=== PATIENT | male | born 1980 | race Caucasian/White ===

== ENCOUNTER 2017-03-17 22:41 | Emergency (ER) | payer OTHER ==
[~2017-03-17] VITALS: Ht 160 cm; Wt 87.2 kg
[~2017-03-17 22:41] MED LIST: ALBUTEROL0.09 MG/A1 IH; BACTRIM DS 8001 TAB PO; BENTYL 10MG10 MG/CAP PO; CELEXA 20MG20 MG/TAB PO; CEPHALEXIN500 M1 PO; CHOLESTEROL MED PO; DOXYCYCLINE 10100 MG PO; FLEXERIL10 MG PO; GENTAMICIN EYE D5 ML OP; GLUCOPHAGE500 MG/TAB PO; LEVEMIR FLEX100 U/ML SQ; LEVEMIR100 U/ML SQ; LOMOTIL 0.025 M1 TAB PO; LORTAB 5/500 501 TAB PO; MECLIZINE25 MG PO; NO HOME MEDICATIONS; NORCO 325 MG-51 TAB PO; NORCO 325 MG-7.1 TAB PO; PEPCID 20MG TAB20 MG PO; PRILOSEC 20MG20 MG PO; PROMETHAZINE12.5 M5 PO; PROZAC 20MG20 MG PO; SEPTRA DS 8001 TAB PO; VENTOLIN0.09 MG IH; ZOFRAN4 MG PO
[2017-03-17 23:01] VITALS: TEMP 98.5
[2017-03-18] MEDS ORDERED: HIBICLENS4% TP (00:41)
[2017-03-18] MEDS ORDERED: DOXYCYCLINE 10100 MG PO (00:41)
[2017-03-18 00:53] VITALS: BP 118/68; PULSE 61
== END 2017-03-18 00:53 | disposition home or self-care (01) ==
LOC: COL.ER 22:41
DX: L02.01 Cutaneous abscess of face (principal); Z86.14 Personal history of Methicillin resistant Staphylococcus aureus infection

== ENCOUNTER 2017-04-01 07:12 | Emergency (ER) | payer BC, OTHER ==
[~2017-04-01] VITALS: Ht 160 cm; Wt 89.2 kg
[~2017-04-01 07:12] MED LIST changes: +HIBICLENS4% TP
[2017-04-01 07:14] VITALS: TEMP 97.4
[2017-04-01 07:57] LABS: BASO % 0.4 % (0.0-2.0); EOS # 0.1 (0.0-0.7); EOS % 1.4 % (0-4.0); GRAN # 6.5 (1.4-6.5); GRAN % 64.5 % (42.2-75.2); HEMOGLOBIN 15.8 g/dl (13.5-18.0); LYMPH # 2.7 (1.2-3.4); LYMPH % 26.9 % (20.0-51.0); MEAN CELL VOLUME 84 fl (80.0-100.0); MEAN CORPUSCULAR HEMOGLOBIN 29 pg (27.0-31.0); MEAN CORPUSCULAR HGB CONC 35 g/dl (33.0-37.0); MONO # 0.6 (0.1-0.6); MONO % 6.2 % (1.7-9.3); PLATELET COUNT 240 K/mm3 (130-400); RED BLOOD COUNT 5.37 M/mm3 (4.20-5.60); REDCELL DISTRIBUTION WIDTH-CV 12.5 % (11.5-14.5)
[2017-04-01 08:07] LABS: ADJUSTED CALCIUM 8.7 mg/dL (8.4-10.2); ALBUMIN 3.7 gm/dL (3.5-5.0); BILIRUBIN,TOTAL 1.2 mg/dL (0.0-1.0); CALCIUM 8.5 mg/dL (8.4-10.2); CREATININE, serum 0.63 mg/dL (0.66-1.25); POTASSIUM 3.7 mmol/L (3.4-5.0); TOTAL PROTEIN 6.7 gm/dL (6.4-8.2)
[2017-04-01] MEDS ORDERED: NORCO 325 MG-51 TAB PO (08:25)
[2017-04-01 09:18] VITALS: BP 114/74; PULSE 70
== END 2017-04-01 09:18 | disposition home or self-care (01) ==
LOC: COL.ER 07:12
PROVIDERS: Emergency Medicine
DX: R55 Syncope and collapse (principal); R10.11 Right upper quadrant pain; E11.9 Type 2 diabetes mellitus without complications; J45.909 Unspecified asthma, uncomplicated; F17.210 Nicotine dependence, cigarettes, uncomplicated

== ENCOUNTER 2017-04-03 17:30 | Emergency (ER) | payer BC ==
[~2017-04-03] VITALS: Ht 160 cm; Wt 86.4 kg
[2017-04-03 17:33] VITALS: TEMP 97.5
[2017-04-03 18:17] LABS: BASO # 0.1 (0.0-0.2); BASO % 0.5 % (0.0-2.0); EOS # 0.2 (0.0-0.7); EOS % 2.2 % (0-4.0); GRAN # 5.3 (1.4-6.5); GRAN % 52.2 % (42.2-75.2); HEMATOCRIT 43.2 % (42.0-52.0); HEMOGLOBIN 15.5 g/dl (13.5-18.0); LYMPH # 3.9 (1.2-3.4); LYMPH % 38.6 % (20.0-51.0); MEAN CELL VOLUME 84 fl (80.0-100.0); MEAN CORPUSCULAR HEMOGLOBIN 30 pg (27.0-31.0); MEAN CORPUSCULAR HGB CONC 36 g/dl (33.0-37.0); MONO # 0.6 (0.1-0.6); PLATELET COUNT 256 K/mm3 (130-400); RED BLOOD COUNT 5.13 M/mm3 (4.20-5.60); REDCELL DISTRIBUTION WIDTH-CV 12.1 % (11.5-14.5); WHITE BLOOD COUNT 10.2 K/mm3 (4.8-10.8)
[2017-04-03 18:22] LABS: PROTHROMBIN TIME 10.9 SECONDS (9.7-12.8)
[2017-04-03 18:25] LABS: PARTIAL THROMBOPLASTIN TIME 31.8 SECONDS (26.0-37.0)
[2017-04-03 18:31] LABS: ALANINE AMINOTRANSFERASE 30 U/L (21-72); ALBUMIN 3.7 gm/dL (3.5-5.0); ALKALINE PHOSPHATASE 82 U/L (50-136); ANION GAP 12 mmol/L (7-16); BILIRUBIN,TOTAL 0.6 mg/dL (0.0-1.0); BLOOD UREA NITROGEN 11 mg/dL (9-20); CALCIUM 8.8 mg/dL (8.4-10.2); CARBON DIOXIDE 21 mmol/L (22-30); CHLORIDE 104 mmol/L (98-107); CREATININE, serum 0.62 mg/dL (0.66-1.25); GLUCOSE 230 mg/dL (74-106); SODIUM 137 mmol/L (137-145); TOTAL PROTEIN 6.6 gm/dL (6.4-8.2)
[2017-04-03 18:47] LABS: TROPONIN-I < 0.012 ng/mL (0.000-0.034)
[2017-04-03] MEDS ORDERED: NORCO 325 MG-51 TAB PO (20:49)
[2017-04-03 21:02] VITALS: BP 118/75; PULSE 63
== END 2017-04-03 21:02 | disposition home or self-care (01) ==
LOC: COL.ER 17:30
PROVIDERS: Family Medicine
DX: R07.9 Chest pain, unspecified (principal); R07.89 Other chest pain; E11.9 Type 2 diabetes mellitus without complications; F17.210 Nicotine dependence, cigarettes, uncomplicated; Z79.4 Long term (current) use of insulin
CPT/HCPCS: J1885; Q9967

== ENCOUNTER 2017-04-18 18:38 | Emergency (ER) | payer BC ==
[~2017-04-18] VITALS: Ht 160 cm; Wt 88.2 kg
[2017-04-18 18:39] VITALS: TEMP 98.4
[2017-04-18 19:10] LABS: BASO # 0.1 (0.0-0.2); BASO % 0.4 % (0.0-2.0); EOS # 0.2 (0.0-0.7); EOS % 1.7 % (0-4.0); GRAN # 6.5 (1.4-6.5); GRAN % 56.3 % (42.2-75.2); HEMATOCRIT 46.6 % (42.0-52.0); HEMOGLOBIN 16.4 g/dl (13.5-18.0); LYMPH % 34.7 % (20.0-51.0); MEAN CELL VOLUME 84 fl (80.0-100.0); MEAN CORPUSCULAR HEMOGLOBIN 30 pg (27.0-31.0); MEAN CORPUSCULAR HGB CONC 35 g/dl (33.0-37.0); MEAN PLATELET VOLUME 10.2 fl (7.4-10.4); MONO # 0.7 (0.1-0.6); MONO % 6.4 % (1.7-9.3); PLATELET COUNT 274 K/mm3 (130-400); RED BLOOD COUNT 5.54 M/mm3 (4.20-5.60); REDCELL DISTRIBUTION WIDTH-CV 12.4 % (11.5-14.5); WHITE BLOOD COUNT 11.5 K/mm3 (4.8-10.8)
[2017-04-18 19:12] LABS: PROTHROMBIN TIME 10.8 SECONDS (9.7-12.8)
[2017-04-18 19:15] LABS: PARTIAL THROMBOPLASTIN TIME 32.3 SECONDS (26.0-37.0)
[2017-04-18 19:33] LABS: ADJUSTED CALCIUM 8.9 mg/dL (8.4-10.2); ALANINE AMINOTRANSFERASE 44 U/L (21-72); ALBUMIN 4.1 gm/dL (3.5-5.0); ALKALINE PHOSPHATASE 79 U/L (50-136); ANION GAP 12 mmol/L (7-16); BILIRUBIN,TOTAL 0.7 mg/dL (0.0-1.0); BLOOD UREA NITROGEN 14 mg/dL (9-20); CARBON DIOXIDE 25 mmol/L (22-30); CHLORIDE 100 mmol/L (98-107); CREATININE, serum 0.65 mg/dL (0.66-1.25); GLUCOSE 257 mg/dL (74-106); POTASSIUM 4.2 mmol/L (3.4-5.0); SODIUM 137 mmol/L (137-145); TOTAL PROTEIN 7.1 gm/dL (6.4-8.2)
[2017-04-18 19:45] LABS: TROPONIN-I < 0.012 ng/mL (0.000-0.034)
[2017-04-18 21:54] VITALS: BP 123/78; PULSE 93
== END 2017-04-18 21:37 | disposition home or self-care (01) ==
LOC: COL.ER 18:38
PROVIDERS: Family Medicine
DX: R07.89 Other chest pain (principal); I10 Essential (primary) hypertension; E11.9 Type 2 diabetes mellitus without complications; F17.210 Nicotine dependence, cigarettes, uncomplicated; Z79.4 Long term (current) use of insulin; Z79.84 Long term (current) use of oral hypoglycemic drugs

== ENCOUNTER 2017-05-07 12:29 | Day surgery (SDC) | payer BC ==
[2017-05-07] VITALS (10 sets, daily range): BP systolic 103–130; BP diastolic 41–88; PULSE 72–97; TEMP 97.4–98.4
[~2017-05-07] VITALS: Ht 160 cm; Wt 88.6 kg
[2017-05-07 13:08] LABS: HEMATOCRIT 46.3 % (42.0-52.0); HEMOGLOBIN 16.3 g/dl (13.5-18.0); MEAN CELL VOLUME 84 fl (80.0-100.0); MEAN CORPUSCULAR HEMOGLOBIN 30 pg (27.0-31.0); MEAN CORPUSCULAR HGB CONC 35 g/dl (33.0-37.0); MEAN PLATELET VOLUME 9.9 fl (7.4-10.4); PLATELET COUNT 267 K/mm3 (130-400); REDCELL DISTRIBUTION WIDTH-CV 12.7 % (11.5-14.5); WHITE BLOOD COUNT 10.6 K/mm3 (4.8-10.8)
[2017-05-07] MEDS ORDERED: ASPIRIN 81M81 MG/TA2 PO (13:15)
[2017-05-07 13:16] LABS: INR 1.1 (0.8-3.0); PROTHROMBIN TIME 11.8 SECONDS (9.7-12.8)
[2017-05-07 13:42] LABS: CALCIUM 8.6 mg/dL (8.4-10.2); CREATININE, serum 0.68 mg/dL (0.66-1.25); POTASSIUM 3.8 mmol/L (3.4-5.0)
[2017-05-08 02:39] VITALS: BP 119/80; PULSE 87; TEMP 97.6
[2017-05-08 08:35] VITALS: BP 131/76; PULSE 85; TEMP 97.2
[2017-05-08] MEDS ORDERED: TYLENOL 325MG325 MG PO (11:53)
[2017-05-08] MEDS ORDERED: CEPHALEXIN500 M1 PO (11:54)
== END 2017-05-08 13:18 | disposition home or self-care (01) ==
LOC: COL.CAR 12:29 → MEDICAL 16:30 → COL.CAR 05-08 13:18
PROVIDERS: Internal Medicine Interventional Cardiology
DX: R00.1 Bradycardia, unspecified (principal); I45.5 Other specified heart block; I20.9 Angina pectoris, unspecified; Z83.3 Family history of diabetes mellitus; Z82.49 Family history of ischemic heart disease and other diseases of the circulatory system
CPT/HCPCS: OP; C1785; C1894; C1898; J0690; J1815; J1940; J2250; J3010; J7030

== ENCOUNTER 2017-06-03 12:31 | Emergency (ER) | payer OTHER ==
[~2017-06-03] VITALS: Ht 160 cm; Wt 88.6 kg
[~2017-06-03 12:31] MED LIST changes: +ASPIRIN 81M81 MG/TA2 PO; +TYLENOL 325MG325 MG PO
[2017-06-03 12:35] VITALS: BP 133/88; PULSE 84; TEMP 98.4
[2017-06-03] MEDS ORDERED: LIPITOR 10MG10 MG PO (12:39)
[2017-06-03] MEDS ORDERED: PEN-VEE K500 MG PO (13:22)
[2017-06-03] MEDS ORDERED: NORCO 325 MG-51 TAB PO (13:22)
== END 2017-06-03 13:52 | disposition home or self-care (01) ==
LOC: COL.ER 12:31
DX: K02.9 Dental caries, unspecified (principal); R68.84 Jaw pain; E11.9 Type 2 diabetes mellitus without complications; F17.210 Nicotine dependence, cigarettes, uncomplicated; Z79.4 Long term (current) use of insulin; Z79.84 Long term (current) use of oral hypoglycemic drugs; Z79.82 Long term (current) use of aspirin; Z95.0 Presence of cardiac pacemaker

== ENCOUNTER 2017-07-12 08:23 | Emergency (ER) | payer OTHER ==
[~2017-07-12] VITALS: Ht 160 cm; Wt 88.6 kg
[~2017-07-12 08:23] MED LIST changes: +LIPITOR 10MG10 MG PO; +PEN-VEE K500 MG PO
[2017-07-12 08:25] VITALS: TEMP 97.4
[2017-07-12 09:06] VITALS: BP 121/84; PULSE 66
== END 2017-07-12 09:07 | disposition home or self-care (01) ==
LOC: COL.ER 08:23
DX: J02.0 Streptococcal pharyngitis (principal); E11.9 Type 2 diabetes mellitus without complications; Z79.84 Long term (current) use of oral hypoglycemic drugs; Z79.4 Long term (current) use of insulin; Z79.82 Long term (current) use of aspirin
CPT/HCPCS: J0561

== ENCOUNTER 2017-08-28 05:40 | Emergency (ER) | payer OTHER ==
[~2017-08-28] VITALS: Ht 160 cm; Wt 88.6 kg
[2017-08-28 05:43] VITALS: TEMP 98.6
[2017-08-28 06:12] LABS: BASO # 0.1 (0.0-0.2); BASO % 0.4 % (0.0-2.0); EOS # 0.2 (0.0-0.7); EOS % 1.4 % (0-4.0); GRAN # 7.5 (1.4-6.5); GRAN % 61.2 % (42.2-75.2); HEMATOCRIT 48.9 % (42.0-52.0); HEMOGLOBIN 16.7 g/dl (13.5-18.0); LYMPH # 3.5 (1.2-3.4); LYMPH % 28.7 % (20.0-51.0); MEAN CELL VOLUME 86 fl (80.0-100.0); MEAN CORPUSCULAR HEMOGLOBIN 29 pg (27.0-31.0); MEAN CORPUSCULAR HGB CONC 34 g/dl (33.0-37.0); MONO % 7.9 % (1.7-9.3); PLATELET COUNT 254 K/mm3 (130-400); RED BLOOD COUNT 5.69 M/mm3 (4.20-5.60); WHITE BLOOD COUNT 12.2 K/mm3 (4.8-10.8)
[2017-08-28 06:24] LABS: PROTHROMBIN TIME 11.1 SECONDS (9.7-12.8)
[2017-08-28 06:27] LABS: PARTIAL THROMBOPLASTIN TIME 33.3 SECONDS (26.0-37.0)
[2017-08-28 06:47] LABS: ADJUSTED CALCIUM 8.9 mg/dL (8.4-10.2); ALANINE AMINOTRANSFERASE 41 U/L (21-72); ALKALINE PHOSPHATASE 90 U/L (50-136); ANION GAP 11 mmol/L (7-16); BILIRUBIN,TOTAL 1.4 mg/dL (0.0-1.0); BLOOD UREA NITROGEN 11 mg/dL (9-20); CALCIUM 8.9 mg/dL (8.4-10.2); CARBON DIOXIDE 24 mmol/L (22-30); CHLORIDE 105 mmol/L (98-107); CREATININE, serum 0.66 mg/dL (0.66-1.25); GLUCOSE 144 mg/dL (74-106); POTASSIUM 3.8 mmol/L (3.4-5.0); SODIUM 140 mmol/L (137-145); TOTAL PROTEIN 7.2 gm/dL (6.4-8.2)
[2017-08-28 06:55] LABS: B-TYPE NATRIURETIC PEPTIDE 24 pg/mL (0-125)
[2017-08-28 07:32] LABS: TROPONIN-I < 0.012 ng/mL (0.000-0.034)
[2017-08-28 11:18] VITALS: BP 125/82; PULSE 64
== END 2017-08-28 11:18 | disposition home or self-care (01) ==
LOC: COL.ER 05:40
PROVIDERS: Emergency Medicine
DX: R07.9 Chest pain, unspecified (principal); R00.0 Tachycardia, unspecified; R00.2 Palpitations; Z45.018 Encounter for adjustment and management of other part of cardiac pacemaker; E11.9 Type 2 diabetes mellitus without complications; I49.5 Sick sinus syndrome; F17.200 Nicotine dependence, unspecified, uncomplicated; Z79.4 Long term (current) use of insulin
CPT/HCPCS: J2270

== ENCOUNTER 2017-09-15 22:36 | Emergency (ER) | payer OTHER ==
[~2017-09-15] VITALS: Ht 160 cm; Wt 88.6 kg
[2017-09-15 22:40] VITALS: BP 155/93; PULSE 63; TEMP 97.8
[2017-09-15] MEDS ORDERED: PEN-VEE K500 MG PO (23:48)
== END 2017-09-15 23:53 | disposition home or self-care (01) ==
LOC: COL.ER 22:36
DX: R07.9 Chest pain, unspecified (principal); K08.89 Other specified disorders of teeth and supporting structures; E11.9 Type 2 diabetes mellitus without complications; F17.210 Nicotine dependence, cigarettes, uncomplicated; Z79.84 Long term (current) use of oral hypoglycemic drugs
CPT/HCPCS: J1885; J2360

== ENCOUNTER 2017-10-07 17:23 | Emergency (ER) | payer OTHER ==
[~2017-10-07] VITALS: Ht 160 cm; Wt 87.7 kg
[~2017-10-07 17:23] MED LIST changes: +CLEOCIN HC150 MG/CAP PO
[2017-10-07 17:34] VITALS: TEMP 98.2
[2017-10-07 18:52] VITALS: BP 111/93; PULSE 85
== END 2017-10-07 18:45 | disposition home or self-care (01) ==
LOC: COL.ER 17:23
DX: J02.9 Acute pharyngitis, unspecified (principal); E11.9 Type 2 diabetes mellitus without complications; F90.9 Attention-deficit hyperactivity disorder, unspecified type; Z79.4 Long term (current) use of insulin

== ENCOUNTER 2017-11-05 06:40 | Emergency (ER) | payer OTHER ==
[~2017-11-05] VITALS: Ht 160 cm; Wt 88.6 kg
[2017-11-05 06:43] VITALS: TEMP 97
[2017-11-05 07:09] LABS: BASO # 0.1 (0.0-0.2); BASO % 0.5 % (0.0-2.0); EOS # 0.2 (0.0-0.7); EOS % 2.1 % (0-4.0); GRAN # 5.8 (1.4-6.5); GRAN % 58.4 % (42.2-75.2); HEMOGLOBIN 16.2 g/dl (13.5-18.0); LYMPH % 30.1 % (20.0-51.0); MEAN CELL VOLUME 86 fl (80.0-100.0); MEAN CORPUSCULAR HEMOGLOBIN 30 pg (27.0-31.0); MEAN CORPUSCULAR HGB CONC 35 g/dl (33.0-37.0); MEAN PLATELET VOLUME 9.8 fl (7.4-10.4); MONO # 0.8 (0.1-0.6); MONO % 7.9 % (1.7-9.3); PLATELET COUNT 258 K/mm3 (130-400); RED BLOOD COUNT 5.45 M/mm3 (4.20-5.60); WHITE BLOOD COUNT 9.9 K/mm3 (4.8-10.8)
[2017-11-05 07:19] LABS: ADJUSTED CALCIUM 8.9 mg/dL (8.4-10.2); ALANINE AMINOTRANSFERASE 46 U/L (21-72); ALBUMIN 4.2 gm/dL (3.5-5.0); ALKALINE PHOSPHATASE 93 U/L (50-136); ANION GAP 11 mmol/L (7-16); BILIRUBIN,TOTAL 0.7 mg/dL (0.0-1.0); BLOOD UREA NITROGEN 9 mg/dL (9-20); CALCIUM 9.1 mg/dL (8.4-10.2); CARBON DIOXIDE 24 mmol/L (22-30); CHLORIDE 106 mmol/L (98-107); CREATININE, serum 0.68 mg/dL (0.66-1.25); GLUCOSE 191 mg/dL (74-106); LIPASE 108 U/L (23-300); POTASSIUM 4.1 mmol/L (3.4-5.0); SODIUM 141 mmol/L (137-145); TOTAL PROTEIN 7.5 gm/dL (6.4-8.2)
[2017-11-05 07:28] LABS: B-TYPE NATRIURETIC PEPTIDE < 11 pg/mL (0-125)
[2017-11-05 07:34] LABS: TROPONIN-I < 0.012 ng/mL (0.000-0.034)
[2017-11-05 09:35] VITALS: BP 119/87; PULSE 82
== END 2017-11-05 09:36 | disposition home or self-care (01) ==
LOC: COL.ER 06:40
PROVIDERS: Emergency Medicine
DX: R07.9 Chest pain, unspecified (principal); E11.9 Type 2 diabetes mellitus without complications; Z95.0 Presence of cardiac pacemaker; Z79.82 Long term (current) use of aspirin; Z79.4 Long term (current) use of insulin
CPT/HCPCS: J7030

== ENCOUNTER → 2017-11-12 | Outpatient (CLI) | payer OTHER | LOC: COL.RAD 10:25 | DX: R07.89 Other chest pain (principal) | CPT/HCPCS: A9502 ==

== ENCOUNTER 2018-03-11 09:34 | Emergency (ER) | payer SELFPAY ==
[~2018-03-11] VITALS: Ht 160 cm; Wt 87.3 kg
[2018-03-11 10:52] VITALS: BP 133/71; PULSE 73; TEMP 98.2
== END 2018-03-11 10:51 | disposition home or self-care (01) ==
LOC: COL.ER 09:34
DX: M25.551 Pain in right hip (principal); E11.9 Type 2 diabetes mellitus without complications; F32.9 Major depressive disorder, single episode, unspecified; F90.9 Attention-deficit hyperactivity disorder, unspecified type; F17.210 Nicotine dependence, cigarettes, uncomplicated; Z95.0 Presence of cardiac pacemaker; Z98.890 Other specified postprocedural states; Z79.4 Long term (current) use of insulin; Z79.82 Long term (current) use of aspirin; X50.0XXA Overexertion from strenuous movement or load, initial encounter

== ENCOUNTER 2018-05-12 21:07 | Emergency (ER) | payer SELFPAY ==
[~2018-05-12] VITALS: Ht 160 cm; Wt 89.1 kg
[2018-05-12 21:10] VITALS: TEMP 98.1
[2018-05-12 21:52] LABS: BASO # 0.1 (0.0-0.2); BASO % 0.4 % (0.0-2.0); EOS # 0.3 (0.0-0.7); EOS % 1.8 % (0-4.0); GRAN # 8.6 (1.4-6.5); GRAN % 62.9 % (42.2-75.2); HEMATOCRIT 42.7 % (42.0-52.0); HEMOGLOBIN 14.8 g/dl (13.5-18.0); LYMPH # 3.6 (1.2-3.4); LYMPH % 26.5 % (20.0-51.0); MEAN CELL VOLUME 85 fl (80.0-100.0); MEAN CORPUSCULAR HEMOGLOBIN 29 pg (27.0-31.0); MEAN CORPUSCULAR HGB CONC 35 g/dl (33.0-37.0); MEAN PLATELET VOLUME 9.9 fl (7.4-10.4); MONO # 1.1 (0.1-0.6); PLATELET COUNT 226 K/mm3 (130-400); RED BLOOD COUNT 5.03 M/mm3 (4.20-5.60)
[2018-05-12 22:04] LABS: ALANINE AMINOTRANSFERASE 40 U/L (21-72); ALBUMIN 3.7 gm/dL (3.5-5.0); ALKALINE PHOSPHATASE 94 U/L (50-136); ANION GAP 10 mmol/L (7-16); AST,SGOT 18 U/L (15-37); BILIRUBIN,TOTAL 0.5 mg/dL (0.0-1.0); BLOOD UREA NITROGEN 13 mg/dL (9-20); C-REACTIVE PROTEIN 3.6 mg/dL (0.0-0.9); CALCIUM 8.5 mg/dL (8.4-10.2); CARBON DIOXIDE 23 mmol/L (22-30); CHLORIDE 105 mmol/L (98-107); CREATININE, serum 0.72 mg/dL (0.66-1.25); GLUCOSE 153 mg/dL (74-106); LIPASE 89 U/L (23-300); POTASSIUM 3.7 mmol/L (3.4-5.0); SODIUM 137 mmol/L (137-145); TOTAL PROTEIN 7.1 gm/dL (6.4-8.2)
[2018-05-12 22:14] LABS: TROPONIN-I < 0.012 ng/mL (0.000-0.034)
[2018-05-12] MEDS ORDERED: ZITHROMAX 250M250 MG PO (23:39)
[2018-05-13 00:18] VITALS: BP 145/91; PULSE 82
== END 2018-05-13 00:18 | disposition home or self-care (01) ==
LOC: COL.ER 21:07
PROVIDERS: Emergency Medicine
DX: R07.81 Pleurodynia (principal); E11.9 Type 2 diabetes mellitus without complications; F17.210 Nicotine dependence, cigarettes, uncomplicated; Z95.0 Presence of cardiac pacemaker; Z79.82 Long term (current) use of aspirin; Z79.4 Long term (current) use of insulin

== ENCOUNTER 2018-07-21 09:10 | Emergency (ER) | payer SELFPAY ==
[~2018-07-21] VITALS: Ht 160 cm; Wt 89.1 kg
[~2018-07-21 09:10] MED LIST changes: +ZITHROMAX 250M250 MG PO
[2018-07-21 09:12] VITALS: BP 134/75; TEMP 98
[2018-07-21] MEDS ORDERED: FLEXERIL 1010 MG/TAB PO (10:30)
[2018-07-21 10:41] VITALS: PULSE 72
== END 2018-07-21 10:42 | disposition home or self-care (01) ==
LOC: COL.ER 09:10
DX: S16.1XXA Strain of muscle, fascia and tendon at neck level, initial encounter (principal); E11.9 Type 2 diabetes mellitus without complications; E78.5 Hyperlipidemia, unspecified; F17.210 Nicotine dependence, cigarettes, uncomplicated; Z95.0 Presence of cardiac pacemaker; Z79.4 Long term (current) use of insulin; Z79.82 Long term (current) use of aspirin; X50.0XXA Overexertion from strenuous movement or load, initial encounter
CPT/HCPCS: J2360

== ENCOUNTER 2019-01-15 17:53 | Emergency (ER) | payer SELFPAY ==
[~2019-01-15] VITALS: Ht 162.6 cm; Wt 87.3 kg
[~2019-01-15 17:53] MED LIST changes: +FLEXERIL 1010 MG/TAB PO
[2019-01-15 18:02] VITALS: TEMP 98
[2019-01-15 19:10] LABS: COLLECTION METHOD CLEAN CATCH
[2019-01-15 19:13] LABS: BASO % 0.3 % (0.0-2.0); EOS # 0.2 (0.0-0.7); EOS % 1.7 % (0-4.0); GRAN # 8.8 (1.4-6.5); GRAN % 64.3 % (42.2-75.2); HEMATOCRIT 45.5 % (42.0-52.0); HEMOGLOBIN 15.7 g/dl (13.5-18.0); LYMPH # 3.6 (1.2-3.4); LYMPH % 26.5 % (20.0-51.0); MEAN CELL VOLUME 87 fl (80.0-100.0); MEAN CORPUSCULAR HEMOGLOBIN 30 pg (27.0-31.0); MEAN CORPUSCULAR HGB CONC 35 g/dl (33.0-37.0); MONO # 0.9 (0.1-0.6); MONO % 6.7 % (1.7-9.3); PLATELET COUNT 276 K/mm3 (130-400); RED BLOOD COUNT 5.26 M/mm3 (4.20-5.60); REDCELL DISTRIBUTION WIDTH-CV 12.7 % (11.5-14.5)
[2019-01-15 19:20] LABS: MUCOUS Present /lpf; PH 5 (5-8); SQUAMOUS EPITHELIAL 0-2 /hpf; URINE APPEARANCE Clear; URINE BACTERIA None Seen /hpf; URINE BILIRUBIN Negative (NEGATIVE); URINE BLOOD Negative (NEGATIVE); URINE COLOR Yellow; URINE GLUCOSE 3+ (NEGATIVE); URINE KETONE Negative (NEGATIVE); URINE LEUKOCYTE ESTERASE Negative (NEGATIVE); URINE NITRATE Negative (NEGATIVE); URINE PROTEIN(semi-quant) Negative (NEGATIVE); URINE RBC 0-2 /hpf; URINE UROBILINOGEN >=4.0 mg/dL (NEGATIVE)
[2019-01-15 19:23] LABS: ALBUMIN 3.7 gm/dL (3.5-5.0); BILIRUBIN,TOTAL 0.4 mg/dL (0.0-1.0); CALCIUM 9.2 mg/dL (8.4-10.2); CREATININE, serum 0.54 mg/dL (0.66-1.25); POTASSIUM 3.8 mmol/L (3.4-5.0); TOTAL PROTEIN 6.8 gm/dL (6.4-8.2)
[2019-01-15 21:25] VITALS: BP 133/84; PULSE 81
== END 2019-01-15 21:28 | disposition home or self-care (01) ==
LOC: COL.ER 17:53
PROVIDERS: Family Medicine
DX: K52.9 Noninfective gastroenteritis and colitis, unspecified (principal); E11.9 Type 2 diabetes mellitus without complications; Z79.82 Long term (current) use of aspirin; Z79.4 Long term (current) use of insulin
CPT/HCPCS: J7030; Q9967

== ENCOUNTER 2019-06-30 10:28 | Emergency (ER) | payer SELFPAY ==
[~2019-06-30] VITALS: Ht 160 cm; Wt 87.3 kg
[2019-06-30 10:33] VITALS: TEMP 97.8
[2019-06-30 10:54] LABS: BASO # 0.1 (0.0-0.2); BASO % 0.5 % (0.0-2.0); EOS # 0.2 (0.0-0.7); EOS % 1.5 % (0-4.0); GRAN # 6.6 (1.4-6.5); GRAN % 61.8 % (42.2-75.2); HEMATOCRIT 47.5 % (42.0-52.0); HEMOGLOBIN 16.3 g/dl (13.5-18.0); LYMPH # 3.1 (1.2-3.4); LYMPH % 28.9 % (20.0-51.0); MEAN CELL VOLUME 87 fl (80.0-100.0); MEAN CORPUSCULAR HEMOGLOBIN 30 pg (27.0-31.0); MEAN CORPUSCULAR HGB CONC 34 g/dl (33.0-37.0); MEAN PLATELET VOLUME 9.6 fl (7.4-10.4); MONO # 0.7 (0.1-0.6); MONO % 6.7 % (1.7-9.3); PLATELET COUNT 264 K/mm3 (130-400); RED BLOOD COUNT 5.48 M/mm3 (4.20-5.60); REDCELL DISTRIBUTION WIDTH-CV 12.5 % (11.5-14.5)
[2019-06-30] MEDS ORDERED: LIPITOR 10MG10 MG PO (10:58)
[2019-06-30 11:07] LABS: ALANINE AMINOTRANSFERASE 27 U/L (21-72); ALKALINE PHOSPHATASE 90 U/L (50-136); ANION GAP 11 mmol/L (7-16); AST,SGOT 25 U/L (15-37); BILIRUBIN,TOTAL 0.6 mg/dL (0.0-1.0); BLOOD UREA NITROGEN 12 mg/dL (9-20); C-REACTIVE PROTEIN 0.8 mg/dL (0.0-0.9); CALCIUM 8.7 mg/dL (8.4-10.2); CARBON DIOXIDE 24 mmol/L (22-30); CHLORIDE 103 mmol/L (98-107); CREATININE, serum 0.58 (0.66-1.25); GLUCOSE 285 mg/dL (74-106); POTASSIUM 4.2 mmol/L (3.4-5.0); SODIUM 139 mmol/L (137-145); TOTAL PROTEIN 7.1 gm/dL (6.4-8.2)
[2019-06-30 11:16] LABS: TROPONIN-I < 0.012 ng/mL (0.000-0.035)
[2019-06-30 15:15] VITALS: BP 105/70; PULSE 86
== END 2019-06-30 15:52 | disposition home or self-care (01) ==
LOC: COL.ER 10:28
PROVIDERS: Nurse Practitioner
DX: R07.89 Other chest pain (principal); E11.9 Type 2 diabetes mellitus without complications; E78.5 Hyperlipidemia, unspecified; F17.210 Nicotine dependence, cigarettes, uncomplicated; Z95.0 Presence of cardiac pacemaker; Z79.4 Long term (current) use of insulin

== ENCOUNTER 2019-07-16 17:06 | Emergency (ER) | payer SELFPAY ==
[~2019-07-16] VITALS: Ht 160 cm; Wt 87.3 kg
[2019-07-16 17:25] VITALS: TEMP 98.4
[2019-07-16 18:45] LABS: BASO % 0.2 % (0.0-2.0); EOS # 0.2 (0.0-0.7); EOS % 1.6 % (0-4.0); GRAN # 4.9 (1.4-6.5); GRAN % 53.9 % (42.2-75.2); HEMATOCRIT 44.3 % (42.0-52.0); HEMOGLOBIN 15.3 g/dl (13.5-18.0); LYMPH # 3.4 (1.2-3.4); LYMPH % 37.2 % (20.0-51.0); MEAN CELL VOLUME 87 fl (80.0-100.0); MEAN CORPUSCULAR HEMOGLOBIN 30 pg (27.0-31.0); MEAN CORPUSCULAR HGB CONC 35 g/dl (33.0-37.0); MEAN PLATELET VOLUME 9.4 fl (7.4-10.4); MONO # 0.6 (0.1-0.6); MONO % 6.7 % (1.7-9.3); PLATELET COUNT 250 K/mm3 (130-400); REDCELL DISTRIBUTION WIDTH-CV 12.4 % (11.5-14.5)
[2019-07-16 18:51] LABS: COLLECTION METHOD CLEAN CATCH
[2019-07-16 18:55] LABS: ALBUMIN 3.9 gm/dL (3.5-5.0); BILIRUBIN,TOTAL 0.6 mg/dL (0.0-1.0); C-REACTIVE PROTEIN 1.2 mg/dL (0.0-0.9); CALCIUM 8.5 mg/dL (8.4-10.2); CREATININE, serum 0.56 (0.66-1.25); POTASSIUM 3.9 mmol/L (3.4-5.0); TOTAL PROTEIN 6.7 gm/dL (6.4-8.2)
[2019-07-16 18:57] LABS: MUCOUS Present /lpf; PH 6 (5-8); SQUAMOUS EPITHELIAL None Seen /hpf; URINE APPEARANCE Clear; URINE BACTERIA None Seen /hpf; URINE BILIRUBIN Negative (NEGATIVE); URINE BLOOD Negative (NEGATIVE); URINE COLOR Yellow; URINE GLUCOSE 3+ (NEGATIVE); URINE KETONE Trace (NEGATIVE); URINE LEUKOCYTE ESTERASE Negative (NEGATIVE); URINE NITRATE Negative (NEGATIVE); URINE PROTEIN(semi-quant) Negative (NEGATIVE); URINE RBC 0-2 /hpf
[2019-07-16] MEDS ORDERED: MIRALAX PA17 GM/Dose PO (20:47)
[2019-07-16 21:51] VITALS: BP 109/74; PULSE 72
== END 2019-07-16 21:14 | disposition home or self-care (01) ==
LOC: COL.ER 17:06
PROVIDERS: Emergency Medicine
DX: R10.9 Unspecified abdominal pain (principal)

== ENCOUNTER 2019-08-03 11:43 | Emergency (ER) | payer SELFPAY ==
[~2019-08-03] VITALS: Ht 160 cm; Wt 87.3 kg
[~2019-08-03 11:43] MED LIST changes: +MIRALAX PA17 GM/Dose PO
[2019-08-03 11:44] VITALS: TEMP 97.6
[2019-08-03 12:09] LABS: BASO % 0.3 % (0.0-2.0); EOS # 0.4 (0.0-0.7); EOS % 3.9 % (0-4.0); GRAN % 60.1 % (42.2-75.2); HEMOGLOBIN 14.3 g/dl (13.5-18.0); LYMPH # 2.8 (1.2-3.4); LYMPH % 28.6 % (20.0-51.0); MEAN CELL VOLUME 88 fl (80.0-100.0); MEAN CORPUSCULAR HEMOGLOBIN 30 pg (27.0-31.0); MEAN CORPUSCULAR HGB CONC 34 g/dl (33.0-37.0); MEAN PLATELET VOLUME 9.8 fl (7.4-10.4); MONO # 0.6 (0.1-0.6); MONO % 6.5 % (1.7-9.3); PLATELET COUNT 223 K/mm3 (130-400); RED BLOOD COUNT 4.79 M/mm3 (4.20-5.60); REDCELL DISTRIBUTION WIDTH-CV 12.7 % (11.5-14.5)
[2019-08-03 12:14] LABS: ALANINE AMINOTRANSFERASE 21 U/L (21-72); ALBUMIN 3.5 gm/dL (3.5-5.0); ALKALINE PHOSPHATASE 81 U/L (50-136); ANION GAP 6 mmol/L (7-16); AST,SGOT 19 U/L (15-37); BILIRUBIN,TOTAL 0.8 mg/dL (0.0-1.0); BLOOD UREA NITROGEN 10 mg/dL (9-20); CALCIUM 8.2 mg/dL (8.4-10.2); CARBON DIOXIDE 24 mmol/L (22-30); CHLORIDE 109 mmol/L (98-107); CREATININE, serum 0.55 (0.66-1.25); GLUCOSE 202 mg/dL (74-106); LIPASE 60 U/L (23-300); POTASSIUM 3.9 mmol/L (3.4-5.0); SODIUM 139 mmol/L (137-145); TOTAL PROTEIN 6.3 gm/dL (6.4-8.2)
[2019-08-03 12:19] LABS: PROTHROMBIN TIME 11.4 SECONDS (9.7-12.8)
[2019-08-03 12:35] LABS: TROPONIN-I < 0.012 ng/mL (0.000-0.035)
[2019-08-03] MEDS ORDERED: MEDROL 4MG DOSPA4 MG PO (14:01)
[2019-08-03 14:15] VITALS: BP 142/70; PULSE 79
[2019-08-04] MEDS ORDERED: NORCO 325 MG-51 TAB PO (08:59)
== END 2019-08-03 14:30 | disposition home or self-care (01) ==
LOC: COL.ER 11:43
PROVIDERS: Emergency Medicine
DX: R07.89 Other chest pain (principal); I10 Essential (primary) hypertension; E11.9 Type 2 diabetes mellitus without complications; F17.210 Nicotine dependence, cigarettes, uncomplicated; Z95.0 Presence of cardiac pacemaker; Z79.82 Long term (current) use of aspirin; Z79.4 Long term (current) use of insulin
CPT/HCPCS: J1885; J2930

== ENCOUNTER 2019-08-04 08:10 | Emergency (ER) | payer SELFPAY ==
[~2019-08-04] VITALS: Ht 160 cm; Wt 87.3 kg
[~2019-08-04 08:10] MED LIST changes: +MEDROL 4MG DOSPA4 MG PO
[2019-08-04 08:14] VITALS: TEMP 96.7
[2019-08-04] MEDS ORDERED: NORCO 325 MG-51 TAB PO (08:59)
[2019-08-04 09:31] VITALS: BP 103/61; PULSE 73
== END 2019-08-04 09:35 | disposition home or self-care (01) ==
LOC: COL.ER 08:10
DX: S46.912A Strain of unspecified muscle, fascia and tendon at shoulder and upper arm level, left arm, initial encounter (principal); M54.12 Radiculopathy, cervical region; E11.9 Type 2 diabetes mellitus without complications; I49.5 Sick sinus syndrome; E78.5 Hyperlipidemia, unspecified; F17.210 Nicotine dependence, cigarettes, uncomplicated; Z95.0 Presence of cardiac pacemaker; Z79.4 Long term (current) use of insulin; Z79.82 Long term (current) use of aspirin; Z98.890 Other specified postprocedural states
CPT/HCPCS: J7512

== ENCOUNTER 2019-09-17 12:56 | Emergency (ER) | payer SELFPAY ==
[~2019-09-17] VITALS: Ht 160 cm; Wt 87.3 kg
[2019-09-17 13:09] VITALS: BP 142/85
[2019-09-17] MEDS ORDERED: DOXYCYCLINE 10100 MG PO (14:33)
[2019-09-17 14:48] VITALS: PULSE 70; TEMP 97.8
== END 2019-09-17 14:52 | disposition home or self-care (01) ==
LOC: COL.ER 12:56
DX: L02.212 Cutaneous abscess of back [any part, except buttock and flank] (principal); F32.9 Major depressive disorder, single episode, unspecified; F90.9 Attention-deficit hyperactivity disorder, unspecified type; E11.9 Type 2 diabetes mellitus without complications; F17.210 Nicotine dependence, cigarettes, uncomplicated; Z79.84 Long term (current) use of oral hypoglycemic drugs; Z95.0 Presence of cardiac pacemaker

== ENCOUNTER 2019-09-20 14:38 | Emergency (ER) | payer OTHER ==
[~2019-09-20] VITALS: Ht 160 cm; Wt 87.3 kg
[2019-09-20 14:52] VITALS: BP 121/79; TEMP 98.4
[2019-09-20 15:37] VITALS: PULSE 79
== END 2019-09-20 15:40 | disposition home or self-care (01) ==
LOC: COL.ER 14:38
DX: L03.312 Cellulitis of back [any part except buttock and flank] (principal); E11.9 Type 2 diabetes mellitus without complications; F32.9 Major depressive disorder, single episode, unspecified; F43.10 Post-traumatic stress disorder, unspecified; Z79.4 Long term (current) use of insulin

== ENCOUNTER 2019-09-23 08:54 | Emergency (ER) | payer OTHER ==
[~2019-09-23] VITALS: Ht 160 cm; Wt 87.3 kg
[2019-09-23 09:11] VITALS: TEMP 97.9
[2019-09-23] MEDS ORDERED: MOBIC 7.5MG7.5 MG PO (09:42)
[2019-09-23 10:20] VITALS: BP 123/87; PULSE 84
== END 2019-09-23 10:24 | disposition home or self-care (01) ==
LOC: COL.ER 08:54
DX: M25.561 Pain in right knee (principal); E11.9 Type 2 diabetes mellitus without complications; I10 Essential (primary) hypertension; F17.210 Nicotine dependence, cigarettes, uncomplicated; Z79.4 Long term (current) use of insulin

== ENCOUNTER 2019-12-22 20:22 | Emergency (ER) | payer OTHER ==
[~2019-12-22] VITALS: Ht 160 cm; Wt 87.3 kg
[~2019-12-22 20:22] MED LIST changes: +MOBIC 7.5MG7.5 MG PO
[2019-12-22 20:54] LABS: COLLECTION METHOD CLEAN CATCH
[2019-12-22 20:58] LABS: BASO # 0.1 (0.0-0.2); BASO % 0.5 % (0.0-2.0); EOS # 0.2 (0.0-0.7); EOS % 1.8 % (0-4.0); GRAN # 5.3 (1.4-6.5); GRAN % 55.8 % (42.2-75.2); HEMATOCRIT 45.5 % (42.0-52.0); LYMPH # 3.4 (1.2-3.4); LYMPH % 35.8 % (20.0-51.0); MEAN CELL VOLUME 85 fl (80.0-100.0); MEAN CORPUSCULAR HEMOGLOBIN 30 pg (27.0-31.0); MEAN CORPUSCULAR HGB CONC 35 g/dl (33.0-37.0); MEAN PLATELET VOLUME 9.9 fl (7.4-10.4); MONO # 0.5 (0.1-0.6); MONO % 5.5 % (1.7-9.3); PLATELET COUNT 246 K/mm3 (130-400); RED BLOOD COUNT 5.34 M/mm3 (4.20-5.60); REDCELL DISTRIBUTION WIDTH-CV 12.4 % (11.5-14.5)
[2019-12-22 21:01] LABS: PH 6 (5-8); SQUAMOUS EPITHELIAL None Seen /hpf; URINE APPEARANCE Clear; URINE BACTERIA None Seen /hpf; URINE BILIRUBIN Negative (NEGATIVE); URINE BLOOD Negative (NEGATIVE); URINE COLOR Straw; URINE GLUCOSE 3+ (NEGATIVE); URINE KETONE Negative (NEGATIVE); URINE LEUKOCYTE ESTERASE Negative (NEGATIVE); URINE NITRATE Negative (NEGATIVE); URINE PROTEIN(semi-quant) Negative (NEGATIVE); URINE RBC 0-2 /hpf; URINE UROBILINOGEN Negative (NEGATIVE)
[2019-12-22 21:09] LABS: ALANINE AMINOTRANSFERASE 30 U/L (21-72); ALKALINE PHOSPHATASE 106 U/L (50-136); ANION GAP 10 mmol/L (7-16); AST,SGOT 21 U/L (15-37); BILIRUBIN,TOTAL 0.5 mg/dL (0.0-1.0); BLOOD UREA NITROGEN 12 mg/dL (9-20); CALCIUM 8.6 mg/dL (8.4-10.2); CARBON DIOXIDE 23 mmol/L (22-30); CHLORIDE 105 mmol/L (98-107); CREATININE, serum 0.86 (0.66-1.25); LIPASE 197 U/L (23-300); POTASSIUM 4.2 mmol/L (3.4-5.0); SODIUM 139 mmol/L (137-145); TOTAL PROTEIN 6.8 gm/dL (6.4-8.2)
[2019-12-22 21:10] LABS: GLUCOSE 404 mg/dL (74-106)
[2019-12-22] MEDS ORDERED: NOVOLIN 70/30 710 ML SQ (23:00)
[2019-12-22] MEDS ORDERED: TAMIFLU 75MG75 MG PO (23:00)
[2019-12-22 23:33] VITALS: BP 122/79; PULSE 77; TEMP 98.7
== END 2019-12-22 23:13 | disposition home or self-care (01) ==
LOC: COL.ER 20:22
PROVIDERS: Emergency Medicine
DX: E11.65 Type 2 diabetes mellitus with hyperglycemia (principal); E78.5 Hyperlipidemia, unspecified; F17.210 Nicotine dependence, cigarettes, uncomplicated; Z20.828 Contact with and (suspected) exposure to other viral communicable diseases; Z79.4 Long term (current) use of insulin; Z95.0 Presence of cardiac pacemaker
CPT/HCPCS: J1815; J1885; J7030

== ENCOUNTER 2020-07-26 20:25 | Emergency (ER) | payer OTHER ==
[~2020-07-26] VITALS: Ht 160 cm; Wt 88.6 kg
[~2020-07-26 20:25] MED LIST changes: +NOVOLIN 70/30 710 ML SQ; +TAMIFLU 75MG75 MG PO
[2020-07-26 20:34] VITALS: TEMP 99.2
[2020-07-26 21:35] VITALS: BP 145/87; PULSE 94
== END 2020-07-26 21:35 | disposition home or self-care (01) ==
LOC: COL.ER 20:25
DX: K11.5 Sialolithiasis (principal); E11.9 Type 2 diabetes mellitus without complications; F32.9 Major depressive disorder, single episode, unspecified; F17.210 Nicotine dependence, cigarettes, uncomplicated; F90.9 Attention-deficit hyperactivity disorder, unspecified type; Z79.4 Long term (current) use of insulin
CPT/HCPCS: J1885

== ENCOUNTER 2020-12-05 09:36 | Emergency (ER) | payer OTHER ==
[~2020-12-05] VITALS: Ht 160 cm; Wt 88.6 kg
[2020-12-05 09:40] VITALS: TEMP 97.7
[2020-12-05 10:05] LABS: BASO # 0.1 (0.0-0.2); BASO % 0.3 % (0.0-2.0); EOS # 0.1 (0.0-0.7); EOS % 0.8 % (0-4.0); GRAN # 11.8 (1.4-6.5); GRAN % 74.7 % (42.2-75.2); HEMATOCRIT 47.8 % (42.0-52.0); HEMOGLOBIN 16.9 g/dl (13.5-18.0); LYMPH # 2.7 (1.2-3.4); LYMPH % 17.4 % (20.0-51.0); MEAN CELL VOLUME 84 fl (80.0-100.0); MEAN CORPUSCULAR HEMOGLOBIN 30 pg (27.0-31.0); MEAN CORPUSCULAR HGB CONC 35 g/dl (33.0-37.0); MEAN PLATELET VOLUME 9.9 fl (7.4-10.4); MONO % 6.3 % (1.7-9.3); PLATELET COUNT 259 K/mm3 (130-400); REDCELL DISTRIBUTION WIDTH-CV 12.4 % (11.5-14.5)
[2020-12-05 10:11] LABS: PROTHROMBIN TIME 11.6 SECONDS (9.7-12.8)
[2020-12-05 10:18] LABS: ALANINE AMINOTRANSFERASE 28 U/L (4-49); ALBUMIN 4.2 gm/dL (3.5-5.0); ALKALINE PHOSPHATASE 99 U/L (50-136); ANION GAP 10 mmol/L (7-16); AST,SGOT 22 U/L (15-37); BLOOD UREA NITROGEN 11 mg/dL (9-20); CARBON DIOXIDE 24 mmol/L (22-30); CHLORIDE 102 mmol/L (98-107); CREATINE KINASE 46 U/L (55-170); GLUCOSE 338 mg/dL (74-106); LIPASE 124 U/L (23-300); POTASSIUM 4.2 mmol/L (3.4-5.0); SODIUM 136 mmol/L (137-145); TOTAL PROTEIN 7.2 gm/dL (6.4-8.2)
[2020-12-05 10:31] LABS: TROPONIN-I < 0.012 ng/mL (0.000-0.035)
[2020-12-05] MEDS ORDERED: DOXYCYCLINE 10100 MG PO (11:02)
[2020-12-05 11:17] VITALS: BP 126/82; PULSE 66
== END 2020-12-05 11:17 | disposition home or self-care (01) ==
LOC: COL.ER 09:36
PROVIDERS: Emergency Medicine
DX: E11.65 Type 2 diabetes mellitus with hyperglycemia (principal); R07.81 Pleurodynia; R05 Cough; E78.5 Hyperlipidemia, unspecified; F17.200 Nicotine dependence, unspecified, uncomplicated; Z95.0 Presence of cardiac pacemaker; Z79.4 Long term (current) use of insulin
CPT/HCPCS: J1885; J7030

== ENCOUNTER 2021-01-19 13:10 | Emergency (ER) | payer OTHER ==
[~2021-01-19] VITALS: Ht 160 cm; Wt 88.6 kg
[~2021-01-19 13:10] MED LIST changes: +LIDODERM 5% PATC1 EA TP
[2021-01-19 13:54] LABS: BASO % 0.2 % (0.0-2.0); EOS # 0.1 (0.0-0.7); EOS % 1.2 % (0-4.0); GRAN # 7.8 (1.4-6.5); GRAN % 65.1 % (42.2-75.2); HEMATOCRIT 45.6 % (42.0-52.0); LYMPH # 3.2 (1.2-3.4); LYMPH % 26.5 % (20.0-51.0); MEAN CELL VOLUME 85 fl (80.0-100.0); MEAN CORPUSCULAR HEMOGLOBIN 30 pg (27.0-31.0); MEAN CORPUSCULAR HGB CONC 35 g/dl (33.0-37.0); MEAN PLATELET VOLUME 10.4 fl (7.4-10.4); MONO # 0.8 (0.1-0.6); MONO % 6.3 % (1.7-9.3); PLATELET COUNT 238 K/mm3 (130-400); RED BLOOD COUNT 5.35 M/mm3 (4.20-5.60); REDCELL DISTRIBUTION WIDTH-CV 12.4 % (11.5-14.5)
[2021-01-19 14:04] LABS: ACETONE,SERUM NEGATIVE
[2021-01-19 14:06] LABS: ALANINE AMINOTRANSFERASE 24 U/L (4-49); ALBUMIN 3.9 gm/dL (3.5-5.0); ALKALINE PHOSPHATASE 117 U/L (50-136); ANION GAP 10 mmol/L (7-16); AST,SGOT 21 U/L (15-37); BILIRUBIN,TOTAL 0.6 mg/dL (0.0-1.0); BLOOD UREA NITROGEN 15 mg/dL (9-20); CALCIUM 8.6 mg/dL (8.4-10.2); CARBON DIOXIDE 23 mmol/L (22-30); CHLORIDE 99 mmol/L (98-107); CREATININE, serum 0.67 (0.66-1.25); LIPASE 178 U/L (23-300); POTASSIUM 4.2 mmol/L (3.4-5.0); SODIUM 131 mmol/L (137-145); TOTAL PROTEIN 6.7 gm/dL (6.4-8.2)
[2021-01-19 14:18] LABS: COLLECTION METHOD CLEAN CATCH
[2021-01-19 15:09] LABS: GLUCOSE 461 mg/dL (74-106)
[2021-01-19 15:17] LABS: PH 6 (5-8); URINE APPEARANCE Clear; URINE COLOR Straw; URINE GLUCOSE 3+ (NEGATIVE); URINE PROTEIN(semi-quant) Negative (NEGATIVE)
[2021-01-19 15:18] LABS: SQUAMOUS EPITHELIAL None Seen /hpf; URINE BILIRUBIN Negative (NEGATIVE); URINE BLOOD Negative (NEGATIVE); URINE KETONE Negative (NEGATIVE); URINE LEUKOCYTE ESTERASE Negative (NEGATIVE); URINE NITRATE Negative (NEGATIVE); URINE RBC 0-2 /hpf; URINE UROBILINOGEN Negative (NEGATIVE)
[2021-01-19 15:19] LABS: URINE BACTERIA None Seen /hpf
[2021-01-19 17:06] VITALS: BP 117/73; PULSE 88; TEMP 98.1
== END 2021-01-19 17:06 | disposition home or self-care (01) ==
LOC: COL.ER 13:10
PROVIDERS: Emergency Medicine
DX: E11.65 Type 2 diabetes mellitus with hyperglycemia (principal); Z79.4 Long term (current) use of insulin; Z95.0 Presence of cardiac pacemaker
CPT/HCPCS: J2405; J7030; J7120

== ENCOUNTER 2021-01-25 10:37 | Emergency (ER) | payer OTHER ==
[~2021-01-25] VITALS: Ht 160 cm; Wt 88.6 kg
[2021-01-25 10:49] VITALS: TEMP 98.1
[2021-01-25 12:44] LABS: BASO # 0.1 (0.0-0.2); BASO % 0.6 % (0.0-2.0); EOS # 0.2 (0.0-0.7); EOS % 1.4 % (0-4.0); GRAN # 6.5 (1.4-6.5); HEMOGLOBIN 16.8 g/dl (13.5-18.0); LYMPH # 3.1 (1.2-3.4); LYMPH % 29.2 % (20.0-51.0); MEAN CELL VOLUME 86 fl (80.0-100.0); MEAN CORPUSCULAR HEMOGLOBIN 30 pg (27.0-31.0); MEAN CORPUSCULAR HGB CONC 35 g/dl (33.0-37.0); MEAN PLATELET VOLUME 10.1 fl (7.4-10.4); MONO # 0.6 (0.1-0.6); MONO % 5.8 % (1.7-9.3); PLATELET COUNT 268 K/mm3 (130-400); RED BLOOD COUNT 5.58 M/mm3 (4.20-5.60); REDCELL DISTRIBUTION WIDTH-CV 12.3 % (11.5-14.5)
[2021-01-25 12:53] LABS: ALANINE AMINOTRANSFERASE 27 U/L (4-49); ALKALINE PHOSPHATASE 99 U/L (50-136); ANION GAP 10 mmol/L (7-16); AST,SGOT 25 U/L (15-37); BILIRUBIN,TOTAL 0.7 mg/dL (0.0-1.0); BLOOD UREA NITROGEN 12 mg/dL (9-20); CALCIUM 9.1 mg/dL (8.4-10.2); CARBON DIOXIDE 26 mmol/L (22-30); CHLORIDE 101 mmol/L (98-107); CREATININE, serum 0.68 (0.66-1.25); LIPASE 132 U/L (23-300); POTASSIUM 4.5 mmol/L (3.4-5.0); SODIUM 136 mmol/L (137-145); TOTAL PROTEIN 7.1 gm/dL (6.4-8.2)
[2021-01-25 12:56] LABS: GLUCOSE 464 mg/dL (74-106)
[2021-01-25 13:05] LABS: TROPONIN-I < 0.012 ng/mL (0.000-0.035)
[2021-01-25 13:11] LABS: COLLECTION METHOD CLEAN CATCH
[2021-01-25 13:24] LABS: MUCOUS Present /lpf; PH 5 (5-8); SQUAMOUS EPITHELIAL None Seen /hpf; URINE APPEARANCE Clear; URINE BACTERIA None Seen /hpf; URINE BILIRUBIN Negative (NEGATIVE); URINE BLOOD Negative (NEGATIVE); URINE COLOR Straw; URINE GLUCOSE 3+ (NEGATIVE); URINE KETONE Negative (NEGATIVE); URINE LEUKOCYTE ESTERASE Negative (NEGATIVE); URINE NITRATE Negative (NEGATIVE); URINE PROTEIN(semi-quant) Negative (NEGATIVE); URINE RBC 0-2 /hpf; URINE UROBILINOGEN Negative (NEGATIVE)
[2021-01-25] MEDS ORDERED: NOVOLOG FLEX100 U/ML SQ (14:10)
[2021-01-25 16:02] VITALS: BP 118/82; PULSE 92
== END 2021-01-25 16:09 | disposition home or self-care (01) ==
LOC: COL.ER 10:37
PROVIDERS: Nurse Practitioner Primary Care
DX: E11.9 Type 2 diabetes mellitus without complications (principal); F17.210 Nicotine dependence, cigarettes, uncomplicated; Z95.0 Presence of cardiac pacemaker; Z79.4 Long term (current) use of insulin
CPT/HCPCS: J1815; J7030

== ENCOUNTER 2021-05-15 12:59 | Emergency (ER) | payer OTHER ==
[~2021-05-15] VITALS: Ht 160 cm; Wt 87.3 kg
[~2021-05-15 12:59] MED LIST changes: +NOVOLOG FLEX100 U/ML SQ
[2021-05-15 13:13] VITALS: TEMP 97
[2021-05-15 14:37] LABS: BASO # 0.1 (0.0-0.2); BASO % 0.4 % (0.0-2.0); EOS # 0.2 (0.0-0.7); EOS % 1.4 % (0-4.0); GRAN # 7.9 (1.4-6.5); GRAN % 65.2 % (42.2-75.2); HEMATOCRIT 45.3 % (42.0-52.0); HEMOGLOBIN 15.9 g/dl (13.5-18.0); LYMPH # 3.3 (1.2-3.4); LYMPH % 26.9 % (20.0-51.0); MEAN CELL VOLUME 85 fl (80.0-100.0); MEAN CORPUSCULAR HEMOGLOBIN 30 pg (27.0-31.0); MEAN CORPUSCULAR HGB CONC 35 g/dl (33.0-37.0); MEAN PLATELET VOLUME 9.3 fl (7.4-10.4); MONO # 0.7 (0.1-0.6); MONO % 5.5 % (1.7-9.3); PLATELET COUNT 283 K/mm3 (130-400); RED BLOOD COUNT 5.32 M/mm3 (4.20-5.60); REDCELL DISTRIBUTION WIDTH-CV 12.4 % (11.5-14.5)
[2021-05-15 14:47] LABS: ALBUMIN 3.8 gm/dL (3.5-5.0); BILIRUBIN,TOTAL 0.4 mg/dL (0.0-1.0); CALCIUM 8.7 mg/dL (8.4-10.2); CREATININE, serum 0.6 (0.66-1.25); POTASSIUM 4.1 mmol/L (3.4-5.0); TOTAL PROTEIN 6.9 gm/dL (6.4-8.2)
[2021-05-15 15:50] VITALS: BP 137/80; PULSE 81
== END 2021-05-15 15:50 | disposition home or self-care (01) ==
LOC: COL.ER 12:59
PROVIDERS: Emergency Medicine
DX: T67.5XXA Heat exhaustion, unspecified, initial encounter (principal); E11.9 Type 2 diabetes mellitus without complications; Z79.4 Long term (current) use of insulin
CPT/HCPCS: J7030

== ENCOUNTER 2021-08-13 16:32 | Emergency (ER) | payer OTHER ==
[~2021-08-13] VITALS: Ht 160 cm; Wt 88.6 kg
[2021-08-13 17:54] VITALS: BP 115/67; PULSE 74; TEMP 98.8
== END 2021-08-13 17:56 | disposition home or self-care (01) ==
LOC: COL.ER 16:32
DX: S30.0XXA Contusion of lower back and pelvis, initial encounter (principal); T67.5XXA Heat exhaustion, unspecified, initial encounter; E11.9 Type 2 diabetes mellitus without complications; Z79.4 Long term (current) use of insulin; Y04.0XXA Assault by unarmed brawl or fight, initial encounter; Y92.59 Other trade areas as the place of occurrence of the external cause; Y99.0 Civilian activity done for income or pay
CPT/HCPCS: J1885; J2360

== ENCOUNTER 2021-09-24 23:00 | Emergency (ER) | payer OTHER ==
[~2021-09-24] VITALS: Ht 160 cm; Wt 87.3 kg
[2021-09-24 23:17] LABS: BASO # 0.1 K/mm3 (0.0-0.2); BASO % 0.4 % (0.0-2.0); EOS # 0.2 K/mm3 (0.0-0.7); EOS % 1.7 % (0-4.0); GRAN # 6.8 K/mm3 (1.4-6.5); GRAN % 55.8 % (42.2-75.2); HEMATOCRIT 46.4 % (42.0-52.0); HEMOGLOBIN 16.2 g/dl (13.5-18.0); LYMPH # 4.2 K/mm3 (1.2-3.4); MEAN CELL VOLUME 85 fl (80.0-100.0); MEAN CORPUSCULAR HEMOGLOBIN 30 pg (27.0-31.0); MEAN CORPUSCULAR HGB CONC 35 g/dl (33.0-37.0); MEAN PLATELET VOLUME 9.9 fl (7.4-10.4); MONO # 0.8 K/mm3 (0.1-0.6); MONO % 6.4 % (1.7-9.3); PLATELET COUNT 258 K/mm3 (130-400); RED BLOOD COUNT 5.44 M/mm3 (4.20-5.60); REDCELL DISTRIBUTION WIDTH-CV 12.6 % (11.5-14.5)
[2021-09-24 23:48] LABS: ALANINE AMINOTRANSFERASE 25 U/L (0-55); ALBUMIN 3.9 gm/dL (3.5-5.0); ALKALINE PHOSPHATASE 110 U/L (40-150); ANION GAP 12 mmol/L (7-16); AST,SGOT 14 U/L (5-34); BILIRUBIN,TOTAL 0.5 mg/dL (0.2-1.2); BLOOD UREA NITROGEN 9 mg/dL (9-21); CALCIUM 9.5 mg/dL (8.4-10.2); CARBON DIOXIDE 21 mmol/L (22-29); CHLORIDE 104 mmol/L (98-107); CREATININE, serum 0.84 mg/dL (0.72-1.25); GLUCOSE 250 mg/dL (70-99); SODIUM 137 mmol/L (136-145); TOTAL PROTEIN 7.2 gm/dL (6.2-8.1)
[2021-09-24 23:59] LABS: TROPONIN-I < 0.010 ng/mL (0.00-0.033)
[2021-09-25 03:21] VITALS: BP 116/79; PULSE 67; TEMP 98.4
[2021-09-25] MEDS ORDERED: ZITHROMAX Z PA250 MG PO (03:22)
== END 2021-09-25 03:29 | disposition home or self-care (01) ==
LOC: COL.ER 23:00
PROVIDERS: Personal Emergency Response Attendant
DX: J18.9 Pneumonia, unspecified organism (principal); E11.9 Type 2 diabetes mellitus without complications; F17.210 Nicotine dependence, cigarettes, uncomplicated; Z79.4 Long term (current) use of insulin; Z79.84 Long term (current) use of oral hypoglycemic drugs
CPT/HCPCS: J0696; J2270; J2405

== ENCOUNTER 2021-12-26 09:17 | Emergency (ER) | payer OTHER ==
[~2021-12-26] VITALS: Ht 160 cm; Wt 86.4 kg
[~2021-12-26 09:17] MED LIST changes: +ZITHROMAX Z PA250 MG PO
[2021-12-26 09:34] VITALS: BP 119/84; PULSE 90; TEMP 98.2
[2021-12-26] MEDS ORDERED: BACTRIM DS 8001 TAB PO (10:18)
== END 2021-12-26 10:33 | disposition home or self-care (01) ==
LOC: COL.ER 09:17
DX: L02.212 Cutaneous abscess of back [any part, except buttock and flank] (principal); E11.9 Type 2 diabetes mellitus without complications; F17.210 Nicotine dependence, cigarettes, uncomplicated; Z79.4 Long term (current) use of insulin; Z79.84 Long term (current) use of oral hypoglycemic drugs

== ENCOUNTER 2022-01-10 12:05 | Emergency (ER) | payer OTHER ==
[~2022-01-10] VITALS: Ht 160 cm; Wt 86.4 kg
[2022-01-10 12:09] VITALS: TEMP 98.6
[2022-01-10 12:57] LABS: COLLECTION METHOD CLEAN CATCH
[2022-01-10 13:04] LABS: PH 6 (5-8); SQUAMOUS EPITHELIAL None Seen /hpf (0-10); URINE APPEARANCE Clear (CLEAR/HAZY); URINE BACTERIA None Seen /hpf (NONE SEEN); URINE BILIRUBIN Negative (NEGATIVE); URINE BLOOD Negative (NEGATIVE); URINE COLOR Straw (YELLOW); URINE GLUCOSE 3+ (NEGATIVE); URINE KETONE Negative (NEGATIVE); URINE LEUKOCYTE ESTERASE Negative (NEGATIVE); URINE NITRATE Negative (NEGATIVE); URINE PROTEIN(semi-quant) Negative (NEGATIVE); URINE RBC 0-2 /hpf (0-2); URINE UROBILINOGEN Negative (NEGATIVE)
[2022-01-10] MEDS ORDERED: VOLTAREN 75 DR75 MG PO (13:13)
[2022-01-10 13:35] VITALS: BP 130/86; PULSE 91
== END 2022-01-10 13:35 | disposition home or self-care (01) ==
LOC: COL.ER 12:05
PROVIDERS: Family Medicine
DX: M54.9 Dorsalgia, unspecified (principal); E11.9 Type 2 diabetes mellitus without complications; Z79.4 Long term (current) use of insulin; Z79.84 Long term (current) use of oral hypoglycemic drugs

== ENCOUNTER 2023-04-23 10:29 | Emergency (ER) | payer OTHER ==
[~2023-04-23] VITALS: Ht 160 cm; Wt 79.5 kg
[~2023-04-23 10:29] MED LIST changes: +VOLTAREN 75 DR75 MG PO
[2023-04-23 10:38] VITALS: TEMP 97.6
[2023-04-23 12:07] LABS: BASO # 0.1 K/mm3 (0.0-0.2); BASO % 0.4 % (0.0-2.0); EOS # 0.1 K/mm3 (0.0-0.7); EOS % 1.3 % (0.0-4.0); GRAN # 7.1 K/mm3 (1.4-6.5); GRAN % 63.4 % (42.2-75.2); HEMATOCRIT 48.7 % (42.0-52.0); LYMPH # 3.1 K/mm3 (1.2-3.4); LYMPH % 27.8 % (20.0-51.0); MEAN CELL VOLUME 86 fl (80.0-100.0); MEAN CORPUSCULAR HEMOGLOBIN 30 pg (27-31); MEAN CORPUSCULAR HGB CONC 35 g/dl (33.0-37.0); MEAN PLATELET VOLUME 9.9 fl (7.4-10.4); MONO # 0.7 K/mm3 (0.1-0.6); MONO % 6.6 % (1.7-9.3); PLATELET COUNT 270 K/mm3 (130-400); RED BLOOD COUNT 5.67 M/mm3 (4.20-5.60); REDCELL DISTRIBUTION WIDTH-CV 12.7 % (11.5-14.5)
[2023-04-23 12:17] LABS: ALANINE AMINOTRANSFERASE 20 U/L (0-55); ALKALINE PHOSPHATASE 96 U/L (40-150); ANION GAP 11 mmol/L (7-16); AST,SGOT 13 U/L (5-34); BLOOD UREA NITROGEN 11 mg/dL (9-21); CALCIUM 9.4 mg/dL (8.4-10.2); CARBON DIOXIDE 23 mmol/L (22-29); CHLORIDE 104 mmol/L (98-107); CREATININE, serum 0.88 mg/dL (0.72-1.25); GLUCOSE 342 mg/dL (70-99); POTASSIUM 3.9 mmol/L (3.5-4.5); SODIUM 138 mmol/L (136-145); TOTAL PROTEIN 7.4 gm/dL (6.2-8.1)
[2023-04-23 12:24] LABS: TROPONIN-I < 0.010 ng/mL (0.00-0.033)
[2023-04-23] MEDS ORDERED: PEPCID AC 10MG10 MG PO (12:57)
[2023-04-23 13:22] VITALS: BP 103/83; PULSE 98
== END 2023-04-23 13:23 | disposition home or self-care (01) ==
LOC: COL.ER 10:29
PROVIDERS: Emergency Medicine
DX: R07.89 Other chest pain (principal); D72.829 Elevated white blood cell count, unspecified; R73.9 Hyperglycemia, unspecified; Z95.0 Presence of cardiac pacemaker

== ENCOUNTER → 2024-08-12 | Outpatient (CLI) | payer OTHER ==
[~2024-08-12] MED LIST changes: +ADVIL DUAL ACT1 EACH PO; +BASAGLAR K100 UNIT/1 SQ; +CELEBREX 1100 MG/CAP PO; +DESYREL 50MG50 MG PO; +GLUCOPHAGE XR500 M1 PO; +GLUCOPHAGE XR750 MG PO; +NEURONTIN300 MG/CAP PO; +PEPCID AC 10MG10 MG PO; +ROCEPHIN 2GM VIAL21 IJ
--- NOTE | 2024-08-12 07:45 | NUR ---
PT TAKEN TO RAD HOLDING AREA, IV STARTED #22 TO RIGHT HAND. REAVIEWED MRI PRECAUTIONS WITH PT, TECH CALLED [facility] CONERNING DRESSING OVER RIGHT KNEE AND MRI, STATES NO METAL BUT TO TAKE OFF OUTER BLUE LOCK OPTILOCK DRESSING AND THEN REPLACE, PT IS TO SEE THEM ON SATURDAY. AFTER MRI, IV D'CD INTACT, AND OUTER DRESSING REPLACED ON KNEE WITH GEORGE WRAP AND MARKIE WRAP APPLIED BEFORE.
== END ==
LOC: COL.RAD 06:54
DX: S81.001D Unspecified open wound, right knee, subsequent encounter (principal); L03.115 Cellulitis of right lower limb

== ENCOUNTER 2024-08-13 18:04 | Inpatient (IN) | payer OTHER ==
[~2024-08-13] VITALS: Ht 160 cm; Wt 81.6 kg
[~2024-08-13 18:04] MED LIST changes: -ADVIL DUAL ACT1 EACH PO; -BASAGLAR K100 UNIT/1 SQ; -CELEBREX 1100 MG/CAP PO; -DESYREL 50MG50 MG PO; -GLUCOPHAGE XR500 M1 PO; -GLUCOPHAGE XR750 MG PO; -NEURONTIN300 MG/CAP PO; -ROCEPHIN 2GM VIAL21 IJ
[2024-08-13 20:07] LABS: BASO # 0.1 K/mm3 (0.0-0.2); BASO % 0.5 % (0.0-2.0); EOS # 0.1 K/mm3 (0.0-0.7); EOS % 0.8 % (0.0-4.0); GRAN # 7.9 K/mm3 (1.4-6.5); GRAN % 64.8 % (42.2-75.2); HEMATOCRIT 41.9 % (42.0-52.0); HEMOGLOBIN 14.9 g/dl (13.5-18.0); LYMPH # 2.9 K/mm3 (1.2-3.4); LYMPH % 24.1 % (20.0-51.0); MEAN CELL VOLUME 84 fl (80.0-100.0); MEAN CORPUSCULAR HEMOGLOBIN 30 pg (27-31); MEAN CORPUSCULAR HGB CONC 36 g/dl (33.0-37.0); MEAN PLATELET VOLUME 9.6 fl (7.4-10.4); MONO # 1.1 K/mm3 (0.1-0.6); MONO % 9.1 % (1.7-9.3); PLATELET COUNT 259 K/mm3 (130-400); REDCELL DISTRIBUTION WIDTH-CV 12.3 % (11.5-14.5)
[2024-08-13 20:34] LABS: ALBUMIN 3.2 g/dL (3.5-5.0); BILIRUBIN,TOTAL 0.8 mg/dL (0.2-1.2); C-REACTIVE PROTEIN 13.32 mg/dL (0.00-0.50); CALCIUM 8.7 mg/dL (8.4-10.2); CREATININE, serum 0.93 mg/dL (0.72-1.25); POTASSIUM 3.8 mEq/L (3.5-4.5); TOTAL PROTEIN 7.4 g/dl (6.2-8.1)
[2024-08-13 21:30] VITALS: BP 122/85; PULSE 99; TEMP 98.3
[2024-08-13] MEDS ORDERED: GLUCOPHAGE XR500 M1 PO (21:39)
[2024-08-13] MEDS ORDERED: SEPTRA DS 8001 TAB PO (21:39)
[2024-08-13] MEDS ORDERED: CELEBREX 1100 MG/CAP PO (21:39)
[2024-08-13] MEDS ORDERED: DESYREL 50MG50 MG PO (21:39)
[2024-08-13] MEDS ORDERED: GLUCOPHAGE XR750 MG PO (21:45)
[2024-08-13] MEDS ORDERED: BASAGLAR K100 UNIT/1 SQ (21:46)
[2024-08-13] MEDS ORDERED: NEURONTIN300 MG/CAP PO (21:48)
[2024-08-13] MEDS ORDERED: ADVIL DUAL ACT1 EACH PO (21:51)
[2024-08-13 22:00] VITALS: BP_SYST 122
[2024-08-13] MEDS ORDERED: Acetaminophen 500 MG TAB PO PRN (22:15)
[2024-08-13] MEDS ORDERED: Ondansetron 4 MG/2 ML VIAL IV PRN (22:15)
--- NOTE | 2024-08-13 22:19 | NUR ---
Patient arrived to surgical unit from ER at approximately 2114. Alert and oriented, and able to make needs known. Reports level 7 pain to right knee. Call placed to hospitalist David, awaiting orders at this time. Peripheral INT to right AC. Started IV ABX per orders. Denies SOB and dyspnea. LS CTA. HRR. BSAx4. Patient has healing laceration to left middle finger. Has wound to right inner knee, source of pain and cellulits. Has been seeing wound care outpatient for this. Redness/warmth/swelling to this area. Patient has steady gait. In bed with call light within reach. All questions answered.
[2024-08-13] MEDS ORDERED: Morphine 4 MG/ML VIAL IV PRN (22:30)
[2024-08-13] MEDS ORDERED: Vancomycin 2 GM,Special Dose/Pharmacy Prepared 2 GM in NS 500 ML IV SCH (22:45)
[2024-08-13] MEDS ORDERED: cefTRIAXone 2 G in Water For Injection,Sterile 20 ML IV SCH (23:30)
[2024-08-13] MEDS ORDERED: Glucagon 1 MG VIAL IM PRN (23:45)
[2024-08-13] MEDS ORDERED: Dextrose 50% Water 25 GM/50 ML SYRINGE IV PRN (23:45)
[2024-08-13] MEDS ORDERED: Dextrose (Glucose) 15 GM (4 x 3.75 GM) Chewable TABLET PACK PO PRN (23:45)
--- NOTE | 2024-08-13 23:46 | NUR ---
Patient given PRN Morphine as requested for pain at this time.
[2024-08-14] VITALS (20 sets, daily range): BP systolic 90–127; BP diastolic 50–85; PULSE 70–98; TEMP 97.6–98.7
[2024-08-14] MEDS ORDERED: Insulin Lispro (HumaLOG) SQ SCH
--- NOTE | 2024-08-14 01:24 | NUR ---
Patient's BS 406, given 12 units of SQ insulin per sliding scale. Called hospitalist Kenneth, no new orders.
--- NOTE | 2024-08-14 04:00 | NUR ---
43 yo male with a history of diabetes is now admitted for further care and management of sepsis likely secondary to cellulitis with abscess around R knee per MRI results that has failed outpatient oral antibiotics. ht 160 cm wt 81.6 kg SCr 0.93 with estimated CrCl >60 ml/min half life 10 hours Plan: Patient received an initial loading dose of vancomycin 1500 mg x1 in the ED; will give a supplemental loading dose of vancomycin 500 mg for a total loading dose of 2000 mg (24.5 mg/kg); followed by a maintenance regimen of vancomycin 1500 mg q12h to target a goal trough of 15-20 mcg/ml. Will follow patient's renal function, micro data, and vancomycin levels as indicated to assess for any necessary changes to regimen. Thank you for this dosing consult.
--- NOTE | 2024-08-14 07:00 | NUR ---
Patient given PRN Morphine as requested for pain twice since coming to unit from ER. Patient made NPO until ortho sees him. Patient upset about not being able to drink water. Tried to explain that if he does have to have any type of surgery today, he would have to be NPO prior to surgery happening. Patient stated that he did not want to bed educated about reasoning behind not being able to drink water. Did appologize to this nurse shortly after conversation. Awaiting ortho consult at this time. Patient voices no further questions, needs, or concerns at this time. In bed with call light within reach.
[2024-08-14] MEDS ORDERED: Vancomycin 1.5 GM,Special Dose/Pharmacy Prepared 1.5 GM in NS 250 ML IV SCH (07:30)
[2024-08-14 07:37] LABS: BASO # 0.1 K/mm3 (0.0-0.2); BASO % 0.6 % (0.0-2.0); EOS # 0.2 K/mm3 (0.0-0.7); EOS % 1.2 % (0.0-4.0); GRAN # 9.6 K/mm3 (1.4-6.5); GRAN % 69.7 % (42.2-75.2); HEMATOCRIT 40.9 % (42.0-52.0); HEMOGLOBIN 14.4 g/dl (13.5-18.0); LYMPH # 2.6 K/mm3 (1.2-3.4); LYMPH % 19.1 % (20.0-51.0); MEAN CELL VOLUME 84 fl (80.0-100.0); MEAN CORPUSCULAR HEMOGLOBIN 30 pg (27-31); MEAN CORPUSCULAR HGB CONC 35 g/dl (33.0-37.0); MEAN PLATELET VOLUME 9.7 fl (7.4-10.4); MONO # 1.2 K/mm3 (0.1-0.6); MONO % 8.7 % (1.7-9.3); PLATELET COUNT 285 K/mm3 (130-400); RED BLOOD COUNT 4.87 M/mm3 (4.20-5.60); REDCELL DISTRIBUTION WIDTH-CV 12.4 % (11.5-14.5)
[2024-08-14 07:47] LABS: CALCIUM 8.4 mg/dL (8.4-10.2); CREATININE, serum 0.82 mg/dL (0.72-1.25); POTASSIUM 3.8 mEq/L (3.5-4.5)
[2024-08-14] MEDS ORDERED: Influenza Virus Vaccine, Trivalent '24-25 0.5 ML SYRINGE IM SCH (09:00)
--- NOTE | 2024-08-14 09:12 | NUR ---
willow worker met with pt and his ex-, Waleska [phone] to discuss discharge planning. SW was informed during clinical rounding that pt will need IV Antibiotics, awaiting cultures to result. Pt reports to live in [place], [place] and has two minor children who visit him. [facility] [place] He obtains medications from [facility] with no difficulties. He reports this stay is covered under Worker's Comp. He provided that he works for [employer] and the injury occurred on a plant site. He reports his RN CM as Autumn [phone]. He is independent with ADLS and uses no DME. He did not have a DPOA-HC and created one listing his ex-, Waleska. INDIA and BRIAN Felipe witnessed signature. Copies and original provided. Copy in chart. Patient was informed on IV ABOX at home with HH or coming into [facility]. Waleska reports she was a nurse for 13 years and lives nearby to assist. Patient would like to do whichever option is covered by worker's comp. INDIA informed admissions and UR ANAND Felipe that pt is a worker's comp case. Discharge Plan: home with IV ABOX
[2024-08-14] MEDS ORDERED: NS 1,000 ML IV SCH ×2 (09:15→18:15)
[2024-08-14] MEDS ORDERED: fentaNYL 50 MCG/ML 2 ML VIAL ONE ×2 (10:25→11:09)
[2024-08-14] MEDS ORDERED: Lidocaine PF 2% (20 MG/ML) 5 ML VIAL ONE (10:25)
[2024-08-14] MEDS ORDERED: Ketorolac 30 MG/ML VIAL ONE (10:58)
[2024-08-14] MEDS ORDERED: Ondansetron 4 MG/2 ML VIAL ONE (10:58)
[2024-08-14] MEDS ORDERED: dexAMETHasone 10 MG/ML VIAL ONE (10:58)
[2024-08-14] MEDS ORDERED: Meperidine 50 MG/ML 1 ML VIAL IV PRN (11:15)
[2024-08-14] MEDS ORDERED: fentaNYL 50 MCG/ML 1 ML SYRINGE/VIAL [PACU/SDC ONLY] IV PRN (11:15)
[2024-08-14] MEDS ORDERED: HYDROmorphone 1 MG/1 ML SYRINGE [PACU/SDC ONLY] IV PRN (11:15)
[2024-08-14] MEDS ORDERED: Ondansetron 4 MG/2 ML VIAL IV PRN ×2 (11:15→11:30)
[2024-08-14] MEDS ORDERED: Magnes Hydrox (MOM) 80 MG/ML 30 ML CUP PO PRN (11:30)
[2024-08-14] MEDS ORDERED: oxyCODONE 5 MG TAB PO PRN (11:30)
[2024-08-14] MEDS ORDERED: Naloxone 0.4 MG/ML VIAL IV PRN (11:30)
[2024-08-14] MEDS ORDERED: Morphine 4 MG/ML VIAL IV PRN (11:30)
--- NOTE | 2024-08-14 11:46 | NUR ---
SHIFT ASSESSMENT COMPLETE. VSS. PATIENT RESTING BED. NPO STATUS FOR I&D OF RT KNEE TODAY. RT KNEE RED AND INFLAMMED WITH LACERATION OPEN TO AIR. ALL MORING IV MEDS GIVEN ORDERED. NS INFUSING AT 75ML/HR. PATIENT HAS NO REQUEST AT THIS TIME. CALL LIGHT IN REACH
--- NOTE | 2024-08-14 12:16 | NUR ---
PATIENT ARRIVED BACK TO FLOOR FROM PACU AT 1210. MARKIE WRAP DRESSING TO RT KNEE W/HEMAVAC DRAIN IN PLACE DRAINAGE RED. 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 VSS. PATIENT HAS NO NEEDS AT THIS TIME. CALL LIGHT IN REACH
[2024-08-14] MEDS ORDERED: Acetaminophen 500 MG TAB PO SCH (12:27)
[2024-08-14] MEDS ORDERED: Insulin Human Regular/NS 100 ML IV SCH (16:45)
[2024-08-14] MEDS ORDERED: Insulin Regular Human (NovoLIN R/HumuLIN R) IV ONE ×2 (16:45→18:00)
--- NOTE | 2024-08-14 17:09 | NUR ---
NEMO GLUCOSE 534, PATIENT ASYMPTOMATC. NOTIFIED DR. COMER AND RECEIVED ORDER TO TRANSFER PATIENT TO ICU. PATIENT REFUSING TO BE TRANSFERED TO ICU. NOTIFIED DIRECTOR OF BUSINESS SERVICES AND RADHA FERRER. ORDERS TO GET LABS DONE AND GIVE INSULIN ORDERED. WILL CONTINUE TO MONITOR.
[2024-08-14 17:36] LABS: BASO % 0.1 % (0.0-2.0); EOS % 0.1 % (0.0-4.0); GRAN # 12.3 K/mm3 (1.4-6.5); GRAN % 86.8 % (42.2-75.2); HEMOGLOBIN 12.7 g/dl (13.5-18.0); LYMPH # 1.2 K/mm3 (1.2-3.4); LYMPH % 8.3 % (20.0-51.0); MEAN CELL VOLUME 87 fl (80.0-100.0); MEAN CORPUSCULAR HEMOGLOBIN 30 pg (27-31); MEAN CORPUSCULAR HGB CONC 35 g/dl (33.0-37.0); MEAN PLATELET VOLUME 9.7 fl (7.4-10.4); MONO # 0.5 K/mm3 (0.1-0.6); MONO % 3.8 % (1.7-9.3); PLATELET COUNT 259 K/mm3 (130-400); RED BLOOD COUNT 4.21 M/mm3 (4.20-5.60); REDCELL DISTRIBUTION WIDTH-CV 12.6 % (11.5-14.5)
[2024-08-14 17:41] LABS: HEMATOCRIT 36.6 % (42.0-52.0)
[2024-08-14 17:48] LABS: CALCIUM 7.6 mg/dL (8.4-10.2); CREATININE, serum 1.32 mg/dL (0.72-1.25)
--- NOTE | 2024-08-14 17:54 | NUR ---
LAB CALLED STATED PATIENT GLUCOSE IS NOW 606. CONTACTED DR. COMER AND SUPERINTENDENT POLICE ZEE. AWAITING ORDERS.
[2024-08-14] MEDS ORDERED: Insulin Lispro (HumaLOG) SQ ONE (18:15)
[2024-08-14] MEDS ORDERED: Insulin Glargine-ygfn (Lantus) SQ ONE (18:15)
[2024-08-14] MEDS ORDERED: Nicotine 14 MG DAILY PATCH TD ONE (18:30)
--- NOTE | 2024-08-14 19:42 | NUR ---
PATIENT AOX4. CALL LIGHT WITHIN REACH. NO ACUTE EVENTS.
[2024-08-14] MEDS ORDERED: Celecoxib 200 MG CAP PO SCH (21:00)
[2024-08-14] MEDS ORDERED: Sennosides/Docusate 8.6-50 MG TAB PO SCH (21:00)
[2024-08-15] VITALS (11 sets, daily range): BP systolic 92–144; BP diastolic 54–87; PULSE 69–78; TEMP 73–98.1
[2024-08-15 07:01] LABS: BASO % 0.3 % (0.0-2.0); EOS # 0.3 K/mm3 (0.0-0.7); EOS % 2.2 % (0.0-4.0); GRAN # 7.6 K/mm3 (1.4-6.5); GRAN % 62.2 % (42.2-75.2); HEMOGLOBIN 11.5 g/dl (13.5-18.0); LYMPH # 3.4 K/mm3 (1.2-3.4); LYMPH % 27.4 % (20.0-51.0); MEAN CELL VOLUME 86 fl (80.0-100.0); MEAN CORPUSCULAR HEMOGLOBIN 30 pg (27-31); MEAN CORPUSCULAR HGB CONC 34 g/dl (33.0-37.0); MEAN PLATELET VOLUME 9.9 fl (7.4-10.4); MONO # 0.8 K/mm3 (0.1-0.6); MONO % 6.5 % (1.7-9.3); PLATELET COUNT 237 K/mm3 (130-400); RED BLOOD COUNT 3.89 M/mm3 (4.20-5.60); REDCELL DISTRIBUTION WIDTH-CV 12.6 % (11.5-14.5)
[2024-08-15 07:02] LABS: HEMATOCRIT 33.4 % (42.0-52.0)
[2024-08-15 07:28] LABS: CALCIUM 7.5 mg/dL (8.4-10.2); CREATININE, serum 0.67 mg/dL (0.72-1.25); POTASSIUM 3.6 mEq/L (3.5-4.5)
--- NOTE | 2024-08-15 08:00 | NUR ---
PATIENT IS A&O. VSS. REPORTS PAIN IN RLE IS MUCH BETTER AFTER GETTING HIS "KNEE DRAINED AND STARTING ON IV ANTIBIOTICS". REPORTS MINIMAL TO NO PAIN AND DENIES NEED FOR PAIN MEDS AT THIS TIME. RLE DSG IS CD&I WITH BULKY ACEWRAP DSG. HEMOVAC DRAIN TO COMPRESSION. RLE ELEVATED WITH PILLOW AND ICE PACK INPLACE. SCD'S CURRENTLY OFF. INDEPENDENT IN ROOM. TOLERATING ADA DIET WELL. AM BS WAS 110, NO SSI REQUIRED. RIGHT AC IV TO INT. HEAD TO TOE ASSESSMENT COMPLETE. AM MEDS GIVEN. NO OTHER NEEDS AT THIS TIME. CALL LIGHT IN REACH.
[2024-08-16] VITALS (13 sets, daily range): BP systolic 107–136; BP diastolic 67–86; PULSE 62–77; TEMP 97.4–98.3
[2024-08-16 06:00] LABS: MEAN CELL VOLUME 86 fl (80.0-100.0); MEAN CORPUSCULAR HEMOGLOBIN 30 pg (27-31); MEAN CORPUSCULAR HGB CONC 34 g/dl (33.0-37.0); MEAN PLATELET VOLUME 9.7 fl (7.4-10.4); PLATELET COUNT 265 K/mm3 (130-400); RED BLOOD COUNT 4.06 M/mm3 (4.20-5.60); REDCELL DISTRIBUTION WIDTH-CV 12.6 % (11.5-14.5)
[2024-08-16 06:17] LABS: CALCIUM 7.6 mg/dL (8.4-10.2); CREATININE, serum 0.64 mg/dL (0.72-1.25); POTASSIUM 4.2 mEq/L (3.5-4.5)
--- NOTE | 2024-08-16 06:32 | NUR ---
PT CURRENTLY SLEEPING, TYLENOL HELD AT THIS TIME, SSI X1 THIS SHIFT, BGM AT MIDNIGHT 87, PT STATED HE "FELT LOW" SANDWICH GIVEN. UP TO 148 @ 0400. VSS, AFEBRILE. DSG TO KNEE CDI
[2024-08-16 07:21] LABS: BAND 1 % (0-10); EOSINOPHIL 4 % (0-4); LYMPHOCYTE 25 % (20.0-51.0); NEUTROPHILS 65 % (42.0-75.2); PLATELET ESTIMATE NORMAL (NORMAL)
[2024-08-16 07:22] LABS: BURR CELLS 1+
--- NOTE | 2024-08-16 13:00 | NUR ---
PATIENT INDEPENDENT IN ROOM. NO NEEDS. CALL LIGHT IN REACH.
--- NOTE | 2024-08-16 15:40 | NUR ---
PATIENT UP MOVING AROUND IN ROOM INDEPENDENTLY AFTER SHOWER AND REPORTS HIS HEMOVAC DRAIN CAME OUT. TIP INTACT AND PATIENT TOLERATED WELL. NOTED NO OUTPUT IN HEMOVAC. RLE DSG INTACT.
[2024-08-17] VITALS (12 sets, daily range): BP systolic 104–135; BP diastolic 66–80; PULSE 61–70; TEMP 97.5–98.7
[2024-08-17] MEDS ORDERED: ROCEPHIN 2GM VIAL21 IJ (10:36)
--- NOTE | 2024-08-17 16:39 | NUR ---
Station Examiner met with patient after his PICC was placed to discuss IV antibiotcs. Patient stated he is agreeable to use [facility] as long as they are approved by his workman's comp. INDIA contacted his Elevator Operator, Autumn who stated they would approve [facility]. INDIA contacted Joanna at [facility] and faxed referral. Joanna stated they can accept patient and she contacted patient and his ex , Waleska to do teaching. Joanna stated they need auth from [employer] who handles billing for [employer]'s comp. INDIA made several calls throughout the afternoon to Joanna and Autumn checking for updates. INDIA then contacted [facility] and spoke with [employer] Hunter who was under the impression patient needed approval for daily nursing. INDIA advised approval was needed for IV infusion and that patient would have dressing changes at [facility]. Hunter stated she would work on auth but did not have a timeframe for completion. INDIA met with patient throughout the afternoon to provide updates and at 1640, INDIA contacted BRIAN Fierro to advise [facility] did not have approval, therefore patient cannot discharge.
[2024-08-18] VITALS (9 sets, daily range): BP systolic 104–151; BP diastolic 70–97; PULSE 60–72; TEMP 97.7–98.6
--- NOTE | 2024-08-18 07:17 | NUR ---
THE PATIENT RESTED WELL OVER NIGHT. NO SIGNS OR SYMPTOMS OF DISTRESS NOTED. VITAL SIGNS STABLE.
--- NOTE | 2024-08-18 09:12 | NUR ---
PATIENT SITTING UP RIGHT IN CHAIR, AMBULATED TOWARD COMPUTER FOR SCANNING OF WRIST BAND. AAOX4. HEAD TO TOE ASSESSMENT DONE. PATIENT RATES PAIN 2/10. MORNING MED GIVEN, FLUSHED PICC LINE WITH NS. PATIENT EXPRESSED HE IS EAGER FOR DISCHARGE. CALL LIGHT WITHIN REACH. RETURNED TO CHAIR.
--- NOTE | 2024-08-18 13:16 | NUR ---
Manpower Development Specialist attempted to contact [employer]'s comp career portals teacher and left a message. INDIA received a voicemail yesterday from [employer] veterans employment representative, Waleska (ext: [phone]). INDIA called her back three times and left a message with no response. INDIA contacted Joanna with [facility] who stated they still don't have the authorization they need from [employer]. INDIA followed up with patient who had Hunter from [employer] on speakerphone. Hunter stated she needed to confirm patient's address and how the medication would be delivered. Hunter stated she would be in touch with [facility]. INDIA attempted to follow up with Hunter from [employer] [facility] using patient's claim #[id number] and left a message. INDIA called Joanna at [facility] at [phone] who still had no approval at this time.
--- NOTE | 2024-08-18 16:43 | NUR ---
certified social workers in health care was notified by Hunter at [employer] [facility] that they have been trying to reach [facility] all day and they have not answered. INDIA explained she has been informed [facility] has been reaching out to [employer] [facility] but has not received an answer yet. [facility] expressed they would like to use one of their preferred pharmacies because this has delayed patient's discharge. INDIA explained she would call [facility] as everything has been arranged other than patient's authorization from them. INDIA called Joanna with [facility] and provided the phone number and extension for Hunter, P# [phone]. Joanna explained they have been trying to reach someone at [facility] all day. Joanna explained they are one of [employer] [facility]'s preferred pharmacies. INDIA received a call back from Joanna that they were able to reach Hunter whom expressed they needed a code for authorization. Joanna explained her education and training coordinator gave that information to [facility]. Joanna explained [facility] asked how soon [facility] would be able to give patient's antibiotics and Joanna explained to them that everything has been prepared, all they need is the authorization from them. Joanna asked if they would have the approval today and [facility] rep told [facility] that they were not certain as it would have to go through a couple more people. INDIA met with patient's nurse and explained the above information. INDIA met with patient and explained the above information. Patient began to raise his voice, social services counselor explained she understood his frustrations and they had been trying to reach [employer] [facility] all day for this reason. Patient explained his nurse transplant case manager, Autumn, informed him that they could "bypass" [facility] and just bill his insurance. INDIA explained that is not what she has been informed. Patient called Autumn and placed her on speaker phone for the social services counselor to speak with her. Once social services counselor explained they need authorization from [employer] before patient can discharge and she was informed that they cannot "bypass" [employer] [facility] and go to his insurance, Autumn stated "oh". INDIA explained the process and that once they have authorization patient could discharge as [facility] as everything ready for him. Autumn asked for patient's discharge orders to be faxed or emailed to her. Patient expressed his frustrations and social services counselor listened. INDIA explained she would update him or his nurse once she heard from [facility] they have received the authorization. INDIA was notified by [employer] [facility] physician representative, Hunter, they have received approval and they would be sending that information to [facility], so patient could discharge today. INDIA called Joanna at [facility] and informed her of this . Joanna explained once she has received this approval from [employer], she just needs a couple consent forms signed from the patient then he could discharge. INDIA ensured Joanna has the patient's nurse contact information. INDIA called [facility] and confirmed patient's appointment is scheduled for Saturday at 9 am for his dressing change and labs. INDIA called patient's nurse and notified her of the above information. INDIA explained it would be best to notify the patient after [facility] has received the approval, because they could not start his services until they had this. INDIA confirmed with Joanna that patient will have his antibiotics delivered for tomorrow. INDIA provided Joanna's number to patient's nurse to ensure they are able to confirm all information is completed before patient discharges. INDIA notified Dr Martin that patient should discharge today after his dose of antibiotics as long as [facility] has completed their consent forms which should be sent to patient via email. Discharge plan: Home with IV antibiotics through [facility]
[2024-08-18] MEDS ORDERED: cefTRIAXone 2 G in Water For Injection,Sterile 20 ML IV ONE (17:15)
--- NOTE | 2024-08-18 19:50 | NUR ---
PATIENT FINALLY RECEIVED AUTHORIZATION FROM WORK COMP SO HE CAN NOW DISCHARGE HOME TONIGHT. GAVE DISCHARGE INSTRUCTIONS, PRINTED ANTIBIOTIC SCRIPT GIVEN, DISCUSSED ANTIBIOTIC ADMINISTRATION, F/U APTS AND PICC CARE. ANSWERED QUESTIONS/CONCERNS. PATIENT DISCHARGING WITH RIGHT UPPER ARM PICC LINE. PATIENT IS DRESSED, PACKED AND DISCHARGED TO HOME.
[2024-08-24] MEDS ORDERED: OZEMPIC0.25 MG/02 SQ (09:29)
== END 2024-08-18 19:55 | disposition home or self-care (01) | DRG 487 ==
LOC: COL.ER 18:04 → SURG 20:13
PROVIDERS: Nurse Practitioner; Physician Assistant; ADMIT Internal Medicine
PROC: 0S9C0ZZ Drainage of Right Knee Joint, Open Approach (ICD-10-PCS; principal; 2024-08-13)
DX: M00.9 Pyogenic arthritis, unspecified (principal); Z79.4 Long term (current) use of insulin; E11.40 Type 2 diabetes mellitus with diabetic neuropathy, unspecified; G47.00 Insomnia, unspecified; Z87.891 Personal history of nicotine dependence
CPT/HCPCS: C1751; J0696; J1100; J1650; J1815; J1885; J2270; J2405; J2704; J3010; J3370; J7030; J7050; Q3014

== ENCOUNTER 2024-09-28 08:34 | Outpatient (RCR) | payer OTHER ==
[~2024-09-28] VITALS: Ht 160 cm; Wt 83.9 kg
[~2024-09-28 08:34] MED LIST changes: +ADVIL DUAL ACT1 EACH PO; +BASAGLAR K100 UNIT/1 SQ; +CELEBREX 1100 MG/CAP PO; +DESYREL 50MG50 MG PO; +GLUCOPHAGE XR500 M1 PO; +GLUCOPHAGE XR750 MG PO; +NEURONTIN300 MG/CAP PO; +NS Flush 10 ML SYRINGE (PICC Line - 10 mL Daily if not in use) ICA SCH; +NS Flush 10 ML SYRINGE (PICC Line - 10 mL PRN) ICA; +OZEMPIC0.25 MG/02 SQ; +ROCEPHIN 2GM VIAL21 IJ
[2024-09-28 09:31] VITALS: BP 143/85; PULSE 95; TEMP 98
--- NOTE | 2024-09-28 09:40 | NUR ---
Pt remained supine 30 mins post PICC removal. Dressing remains clean, dry and intact. Pt is free of complaints. Respirations even and unlabored. Home instructions reviewed with pt and printed instructions sent with him. He exits dept with ex-. Free of complaints at discharge.
== END 2024-09-28 09:50 | disposition home or self-care (01) ==
LOC: EUO 08:34
PROVIDERS: Orthopaedic Surgery
DX: Z98.890 Other specified postprocedural states (principal)